=== PATIENT | male | born 1945 | race Caucasian/White ===

== ENCOUNTER 2019-06-12 04:51 | Inpatient (IN) ==
--- NOTE | 2019-05-15 09:03 | Anesthesiology Consultation ---
Date of Service May 15, 2019 Assessment & Plan (1) Encounter for pre-operative examination: Chart Review Chart Review: Acceptable Risk for Surgery and Patient seen in Pre Admission Testing Teaching & Discussion Instructed NPO after midnight before surgery, except medications with 15 cc of water. Medication instructions provided according to the PAT guidelines. History Surgery Operation Date: 06/12/19 09:20 Proposed Procedures p Right Shoulder Open Debridement, Lysis of Adhesions, Component Exchange, Possible Revision Total Shoulder Arthroplasty - Huber Foster DO Height/Weight Height: 5 ft 8 in Weight: 68.039 kg Allergies Allergy/AdvReac Type Severity Reaction Status Date / Time Vykgpmf-Wda-Pfq Reductase Allergy Unknown abnormal Verified 05/09/19 10:21 Inhibitor blood work, mimicing heart attack Medications Home Medications Medication Instructions Recorded Confirmed Last Taken lisinopril 20 mg tablet 20 mg PO QAM 02/12/19 05/09/19 Unknown Cramp Desense 70 mg PO DAILY 05/09/19 05/09/19 Unknown Holy Basil 1 tab PO DAILY 05/09/19 05/09/19 Unknown alpha lipoic acid 300 mg PO DAILY 05/09/19 05/09/19 Unknown ascorbic acid (vitamin C) [Vitamin 500 mg PO DAILY 05/09/19 05/09/19 Unknown C With Lynnette Hips] aspirin [Aspirin Low Dose] 81 mg PO DAILY 05/09/19 05/09/19 Unknown calcium carbonate-vitamin D3 1 tab PO DAILY 05/09/19 05/09/19 Unknown [Calcium 600 + D(3)] cholecalciferol (vitamin D3) 2,000 unit PO DAILY 05/09/19 05/09/19 Unknown [Vitamin D3] folic acid 0.8 mg PO DAILY 05/09/19 05/09/19 Unknown methotrexate sodium 25 mg PO WK 05/09/19 05/09/19 Unknown pqzfbmlo-zvd-HK-lycopen-lutein 1 tab PO DAILY 05/09/19 05/09/19 Unknown [Centrum Silver Men] niacin 1,500 mg PO DAILY 05/09/19 05/09/19 Unknown potassium gluconate 595 mg PO DAILY 05/09/19 05/09/19 Unknown salmon oil-omega-3 fatty acids 1 cap PO DAILY 05/09/19 05/09/19 Unknown [[place] Oil-1000] saw palmetto 500 mg PO DAILY 05/09/19 05/09/19 Unknown vit A,C and N-fhumvg-oecacxmv 1 tab PO DAILY 05/09/19 05/09/19 Unknown [Vision Formula (with lutein)] Past Medical History Medical History Chronic steroid use High blood pressure High cholesterol Osteoarthritis Psoriasis methotrexate weekly (Dermatology) Exercise / Class Metabolic Activity II 4-5 Yardwork/Stairs/Walk up hill (Denies CP or SOB with 1 FOS, +SOB when walking large energetic dog daily) Past Family History Family History Father FHx: leukemia Family history of diabetes mellitus Grandmother (Paternal) Family history of diabetes mellitus Brother FHx: prostate cancer Other No family history of adverse response to anesthesia Past Surgical History Surgical History H/O repair of left rotator cuff open H/O repair of right rotator cuff arthroscopy H/O vasectomy History of cataract surgery bilateral History of colonoscopy History of reverse total replacement of right shoulder joint History of tonsillectomy S/P left knee arthroscopy Past Anesthesia History No Hx of Anesthesia Complications and No Family Hx of Anesthesia Complications History of PONV No Hx of PONV and No Hx of Motion Sickness Social History Smoking Status: Never smoker Do You Dip or Chew Tobacco: No Hx Alcohol Use: Yes Alcohol type: beer alcohol intake frequency: 0-2 drinks per day (1-2) Hx Substance Use: No substance use type: does not use Review of Systems Pt denies any recent chest pain, shortness of breath, palpitations, cough, fever or URI. Physical Exam Vital Signs BP: 145/75 P: 83bpm SPO2: 97% RA T: 97.7 F R: 16 ENMT Mouth: + dental restorations (silver fillings); no chipped teeth and no loose teeth Thyromental Distance: > or= 3.5 Finger Breadths (3.5) Mallampati Class: I Neck normal visual inspection; neck extension not limited Respiratory normal respiratory effort Auscultation: lungs clear to auscultation bilaterally Cardiovascular Rate/Rhythm: regular rate and regular rhythm Heart Sounds: no murmur Vessels: no carotid bruit Testing Laboratory Results 05/15/19 09:14 05/15/19 09:14 PT 10.9 Seconds (9.0-12.0) 05/15/19 09:14 INR 1.1 (0.9-1.1) 05/15/19 09:14 APTT 26.3 Seconds (21.0-31.0) 05/15/19 09:14 Blood Type A Positive 05/15/19 09:14 Antibody Screen NEGATIVE 05/15/19 09:14 Electrocardiogram Date: 05/15/19 Findings: + NSR @ (70bpm) *unconfirmed Chest X-Ray Date: 05/15/19 Findings: + NAD
--- NOTE | 2019-05-15 09:10 | PAT Medication Instructions ---
Medication Instructions Date of Service May 15, 2019 Home Medications lisinopril 20 mg tablet 20 mg PO QAM Cramp Desense 70 mg PO DAILY Holy Basil 1 tab PO DAILY alpha lipoic acid 300 mg PO DAILY ascorbic acid (vitamin C) [Vitamin C With Lynnette Hips] 500 mg PO DAILY aspirin [Aspirin Low Dose] 81 mg PO DAILY calcium carbonate-vitamin D3 [Calcium 600 + D(3)] 1 tab PO DAILY cholecalciferol (vitamin D3) [Vitamin D3] 2,000 unit PO DAILY folic acid 0.8 mg PO DAILY methotrexate sodium 25 mg PO WK wyahdjet-sqg-HI-lycopen-lutein [Centrum Silver Men] 1 tab PO DAILY niacin 1,500 mg PO DAILY potassium gluconate 595 mg PO DAILY salmon oil-omega-3 fatty acids [[place] Oil-1000] 1 cap PO DAILY saw palmetto 500 mg PO DAILY vit A,C and N-gqqnjv-zlbbmrvz [Vision Formula (with lutein)] 1 tab PO DAILY ASK your surgeon for instructions aspirin [Aspirin Low Dose] 81 mg PO DAILY STOP taking 2 weeks before surgery If surgery is within 2 weeks, stop taking as soon as possible. Cramp Desense 70 mg PO DAILY Holy Basil 1 tab PO DAILY alpha lipoic acid 300 mg PO DAILY yijgdkrh-keh-RB-lycopen-lutein [Centrum Silver Men] 1 tab PO DAILY salmon oil-omega-3 fatty acids [[place] Oil-1000] 1 cap PO DAILY saw palmetto 500 mg PO DAILY vit A,C and O-grslfm-ltdrpqfv [Vision Formula (with lutein)] 1 tab PO DAILY DO NOT take the morning of surgery lisinopril 20 mg tablet 20 mg PO QAM ascorbic acid (vitamin C) 500 mg PO DAILY calcium carbonate-vitamin D3 [Calcium 600 + D(3)] 1 tab PO DAILY cholecalciferol (vitamin D3) [Vitamin D3] 2,000 unit PO DAILY folic acid 0.8 mg PO DAILY potassium gluconate 595 mg PO DAILY Other Notes If you have any questions please call us at [phone] or [phone] or [phone] or [phone]
--- NOTE | 2019-05-15 09:58 | XRay Report ---
XR chest Pre-admission PA/Lat HISTORY: 73 years-old Male pat preoperative exam. No acute chest complaints COMPARISON: None available TECHNIQUE: PA and lateral views of the chest FINDINGS: Cardiomediastinal and hilar silhouettes are within normal limits. Calcified plaque of the thoracic ao rtic arch. There is no pneumothorax, pleural effusion, focal airspace consolidation or overt pulmonar y edema. Degenerative changes of the spine and left shoulder. Reverse right shoulder total joint arth roplasty. IMPRESSION: No acute process. ACT 112: Negative or not required by law. The above report was generated using voice recognition software. It may contain grammatical, syntax o r spelling errors. Electronically signed by: Larry Russell M.D. 05/15/2019 9:56 AM
[2019-05-15 10:20] LABS: Basophils # (auto) 0.02 K/uL (0-0.2); Basophils % (auto) 0.2 %; Eosinophils # (auto) 0.04 K/uL (0-0.5); Eosinophils % (auto) 0.5 %; Hematocrit (blood only) 39.3 % (42-52); Hemoglobin 13.7 g/dL (14.0-18.0); Immature Granulocytes # (auto) 0.01 K/uL (0.00-0.02); Immature Granulocytes % (auto) 0.1 %; Lymphocytes % (auto) 20.9 %; Mean Corpuscular Hemoglobin 29.8 pg (25-34); Mean Corpuscular Hgb Conc 34.9 g/dL (32-36); Mean Corpuscular Volume 85.6 fL (80-100); Mean Platelet Volume 9.7 fL (7.4-10.4); Monocytes # (auto) 0.87 K/uL (0.11-0.59); Monocytes % (auto) 10.7 %; Neutrophils # (auto) 5.48 K/uL (1.4-6.5); Neutrophils % (auto) 67.6 %; Platelet Count 234 K/uL (130-400); RDW Coefficient of Variation 15.5 % (11.5-14.5); RDW Standard Deviation 47.9 fL (36.4-46.3); Red Blood Count 4.59 M/uL (4.7-6.1); White Blood Count 8.12 K/uL (4.8-10.8)
[2019-05-15 10:32] LABS: INR 1.1 (0.9-1.1); Partial Thromboplastin Time 26.3 Seconds (21.0-31.0); Prothrombin Time 10.9 Seconds (9.0-12.0)
[2019-05-15 10:35] LABS: BUN Creatinine Ratio 19.9 (10-20); Est GFR (African American) 104.6; Est GFR (Non-African American) 90.2; Potassium 4.5 mmol/L (3.5-5.1)
--- NOTE | 2019-05-16 17:31 | Electrocardiogram Report ---
Test Reason : Blood Pressure : / mmHG Vent. Rate : 070 BPM Atrial Rate : 070 BPM P-R Int : 170 ms QRS Dur : 086 ms QT Int : 352 ms P-R-T Axes : 067 073 066 degrees QTc Int : 380 ms Normal sinus rhythm Normal ECG No previous ECGs available Confirmed by Tony Nino ([id number]) on 05/16/2019 5:30:52 PM Referred By: Huber Foster Confirmed By:Eduardo Nino
--- NOTE | 2019-06-08 15:33 | History & Physical Report ---
Date of Service June 08, 2019 Assessment & Plan (1) Pain in shoulder region after shoulder replacement: We will proceed with a 1 stage revision of his right shoulder. Postoperatively he will be placed in a sling and kept overnight in the hospital for postoperative medical management. There will likely depend on the frozen sections during the procedure with regards to his postoperative antibiotics. Present on Admission?: Yes History of Present Illness Chief Complaint: Infected right shoulder prosthesis Primary Care Provider: Priya Mckeon RN Rufino is a 73-year-old male with complaints of right shoulder pain that has been persistent since he had a right reverse total shoulder arthroplasty in October 2016. His shoulder replacement was done in [place]. His history goes that he had a work-related injury resulting in a rotator cuff tear, requiring surgery in 2016. He had good outcome with the rotator cuff surgery and was able to return to work for 3 weeks, however he sustained another injury during a fall while walking his dog. For this injury he had a fractured wrist and apparently massive rotator cuff tear. This was treated nonoperatively for some time, however he had significant pain interfere with daily activities. He was indicated for reverse right total shoulder arthroplasty which was completed in October 2016. He reports since that arthroplasty procedure he has not had any relief from pain. He reports "it has never felt right." He complains of daily pain. The pain occurs with activities of daily living such as doing laundry or cleaning the house or doing dishes. It seems more he does the more pain he has at night. The pain does interfere with sleep, however he says that he also wakes for frequent urination. He also has had a diffuse erythema over that shoulder for some time. He had a full work-up for infection, which is included laboratory work, bone scan, and eventual punch biopsy of the erythema about the shoulder. This work-up was all done with his surgeon in [place]. He was told there is no evidence of infection. He describes no sensation of looseness to the shoulder. He relates this shoulder is painful on the prominent area anteriorly. He denies any mechanical symptoms. He does report on occasion it feels like it is out of socket and he has a shifted back into place. This is rare. He has no pain that radiates down his upper extremity. He does have pain that spreads back to the shoulder blade. He denies any numbness or tingling. He denies any new injuries. He presented to our office for second opinion. We repeated the sed rate, CRP, and CBC. All of the infection markers were mildly elevated. He continued to have good function of his shoulder but continued to have a lot of pain. We tried him on a course of doxycycline oral antibiotic. This did not give him any relief. After failing years of conservative treatment, he has elected to proceed with a 1 stage revision of the right shoulder arthroplasty. Allergies Allergy/AdvReac Type Severity Reaction Status Date / Time Dodkvri-Lrr-Ptr Reductase Allergy Unknown abnormal Verified 05/09/19 10:21 Inhibitor blood work, mimicing heart attack Home Medications Home Medications Medication Instructions Recorded Confirmed Type lisinopril 20 mg tablet 20 mg PO QAM 02/12/19 05/09/19 History Cramp Desense 70 mg PO DAILY 05/09/19 05/09/19 History Holy Basil 1 tab PO DAILY 05/09/19 05/09/19 History alpha lipoic acid 300 mg PO DAILY 05/09/19 05/09/19 History ascorbic acid (vitamin C) [Vitamin 500 mg PO DAILY 05/09/19 05/09/19 History C With Lynnette Hips] aspirin [Aspirin Low Dose] 81 mg PO DAILY 05/09/19 05/09/19 History calcium carbonate-vitamin D3 1 tab PO DAILY 05/09/19 05/09/19 History [Calcium 600 + D(3)] cholecalciferol (vitamin D3) 2,000 unit PO DAILY 05/09/19 05/09/19 History [Vitamin D3] folic acid 0.8 mg PO DAILY 05/09/19 05/09/19 History methotrexate sodium 25 mg PO WK 05/09/19 05/09/19 History kteapyas-bjs-CA-lycopen-lutein 1 tab PO DAILY 05/09/19 05/09/19 History [Centrum Silver Men] niacin 1,500 mg PO DAILY 05/09/19 05/09/19 History potassium gluconate 595 mg PO DAILY 05/09/19 05/09/19 History salmon oil-omega-3 fatty acids 1 cap PO DAILY 05/09/19 05/09/19 History [[place] Oil-1000] saw palmetto 500 mg PO DAILY 05/09/19 05/09/19 History vit A,C and H-ygabzm-aenprcqf 1 tab PO DAILY 05/09/19 05/09/19 History [Vision Formula (with lutein)] Past Med/Surg History Medical History Chronic steroid use High blood pressure High cholesterol Osteoarthritis Psoriasis methotrexate weekly (Dermatology) Surgical History H/O repair of left rotator cuff open H/O repair of right rotator cuff arthroscopy H/O vasectomy History of cataract surgery bilateral History of colonoscopy History of reverse total replacement of right shoulder joint History of tonsillectomy S/P left knee arthroscopy Family History Father FHx: leukemia Family history of diabetes mellitus Grandmother (Paternal) Family history of diabetes mellitus Brother FHx: prostate cancer Other No family history of adverse response to anesthesia Social History Preferred Language: Armenian Communication Ability: Effective 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 Beliefs That Will Affect Care: None Current Living Situation: Spouse Other Information That Helps Us Care for You: No Feels Safe at Home: Yes Safety Concerns: Feels Safe At This Time Smoking Status: Never smoker Do You Dip or Chew Tobacco: No ; Second Hand Exposure: No ; Tobacco Cessation Education Requested by Patient: No Hx Alcohol Use: Yes Alcohol type: beer Hx Substance Use: No Review of Systems All systems reviewed & are unremarkable except as noted in HPI & below Physical Exam Constitutional: WD/WN, vitals as above Eyes: PERRL, conjunctivae normal, anicteric sclerae ENMT: external ear and nose normal, oropharynx normal Neck: trachea midline, no thyromegaly Respiratory: normal respiratory effort Cardiovascular: RRR, no murmur, no edema Gastrointestinal (Abdomen): normal bowel sounds, soft, nontender, no hepatosplenomegaly Musculoskeletal: On physical examination of the right shoulder, he has extensive red rash around the anterior aspect of his right shoulder. He is neurovascularly intact. He is decent motion about 130 degrees of forward elevation, 30 degrees of abduction and 30 Gy of external rotation. He has good range of motion. He does have pain throughout range of motion. Most of pain is located anteriorly. Psychiatric: A+Ox3, euthymic affect Results & Data Diagnostic Findings X-rays of the right shoulder show a press-fit Depuy delta extend right reverse shoulder arthroplasty. The prosthesis appears to be in good alignment. The x- rays are negative.
[2019-06-12] MEDS ORDERED: dexAMETHasone 4 MG TAB PO SCH (06:00)
[2019-06-12] MEDS ORDERED: LR 15ML/HR IV SCH (06:00)
[2019-06-12] MEDS ORDERED: ACETAMINOPHEN 500 MG TAB PO SCH (06:00)
[2019-06-12] MEDS ORDERED: GABAPENTIN 300 MG CAP PO SCH (06:00)
[2019-06-12] MEDS ORDERED: LR 60ML/HR IV SCH (06:00)
[2019-06-12] MEDS ORDERED: TRANEXAMIC ACID 1,000 MG **IV Pre-op IV SCH (06:00)
[2019-06-12] MEDS ORDERED: TRANEXAMIC ACID 1,000 MG **IV Intra-op IV SCH (06:00)
[2019-06-12] MEDS ORDERED: ROPIVACAINE 0.5% HCL/PF 150 MG, BUPIVACAINE 0.5% MPF 30 ML, EPINEPHrine 30MG/30ML (OR U... INFIL SCH (06:00)
[2019-06-12] MEDS ORDERED: CEFAZOLIN 2000MG 2,000 MG/15 ML SYR IV SCH (06:00)
[2019-06-12] MEDS ORDERED: FAMOTIDINE 20 MG TAB PO SCH (06:00)
--- NOTE | 2019-06-12 06:22 | History & Physical Bridge Note ---
Date of Service June 12, 2019 History & Physical Bridge Note I have examined the patient, reviewed the History & Physical and in the interval since the performance of the History & Physical I have noted the following changes of clinical significance: no changes noted
[2019-06-12] MEDS ORDERED: BUPIVACAINE 0.5 % 5 MG/1 ML PF 10ML VIAL ONE (06:30)
[2019-06-12] MEDS ORDERED: fentaNYL citrate 100 MCG/2 ML VIAL ONE (06:42)
[2019-06-12] MEDS ORDERED: ROCURONIUM BROMIDE 10 MG/ML 5 ML VIAL ONE (06:42)
[2019-06-12] MEDS ORDERED: ONDANSETRON INJ 2 MG/ML 2 ML VIAL ONE (06:42)
[2019-06-12] MEDS ORDERED: LIDOCAINE HCL 2% 2 ML VIAL/AMP(20MG/ML) INFIL ONE (06:42)
[2019-06-12] MEDS ORDERED: MIDAZOLAM HCL 1 MG/ML 2ML VIAL ONE (06:42)
[2019-06-12] MEDS ORDERED: PROPOFOL IV EMULSION 10 MG/ML 20 ML VIAL IV ONE (06:42)
[2019-06-12] MEDS ORDERED: BACITRACIN INJ 50,000 UNIT VIAL ONE ×2 (07:00→07:26)
[2019-06-12] MEDS ORDERED: DAKIN'S SOLN 0.5% FULL STRENGTH 473ML BTL EXT STA (07:03)
[2019-06-12] MEDS ORDERED: DEXAMETHASONE SOD INJ 4 MG/ML VIAL ONE (07:29)
[2019-06-12] MEDS ORDERED: ONDANSETRON INJ 2 MG/ML 2 ML VIAL IV PRN ×2 (09:11→11:24)
[2019-06-12] MEDS ORDERED: ePHEDrine sulfate 50 MG/ML AMP IV PRN (09:11)
[2019-06-12] MEDS ORDERED: ATROPINE SULFATE 0.1 MG/ML 10ML SYR IV PRN (09:11)
[2019-06-12] MEDS ORDERED: fentaNYL citrate 100 MCG/2 ML VIAL IV PRN (09:11)
--- NOTE | 2019-06-12 10:21 | Operative Report ---
PG Post Operative Report Pre & Post Diagnosis Operation Date: 06/12/19 07:00 Pre-Op Diagnosis: infected right shoulder prosthesis Post-Op Diagnosis: infected right shoulder prosthesis I identified the patient and participated in the time-out.: Yes Procedure Operation Date: 06/12/19 07:00 Actual Procedures p Right Shoulder removal of all components with complete irrigation and debridement of the right shoulder joint. A reimplantation of a reverse shoulder prosthesis was then done as a separate procedure (modifier 59 ) - Huber Foster DO Surgeon Huber Foster DO Sales Planning Coordinator Dr. Juan Lima MD, Huber Galan PAC Estimated Blood Loss 250 Findings Consistent with Post-Op Diagnosis Specimens Swab cultures and tissue cultures Complications none Disposition Disposition: Recovery Room Indications Rufino is a pleasant 74-year-old male who underwent a right reverse shoulder arthroplasty about 3 years ago in [place]. He has been having right shoulder pain since. He came to my clinic for second opinion. Work-up and physical examination are suggestive of a possible infection of the right shoulder prosthesis. After failing conservative treatment, he elected to proceed with a 1 stage revision of the right shoulder. Description of Procedure On June 12, 2019 Rufino arrived at [facility] for the above procedure. He was seen in the preoperative holding area and the operative extremity was identified and signed. He was given a right interscalene nerve block. He was taken back to the operating room and laid on the table in the supine position. He was put under general anesthesia. He was then put into the beachchair position. The right shoulder was prepped and draped in sterile fashion. A timeout was done. The patient and the operative extremity was properly identified. The previous deltopectoral incision was opened up. Dissection was taken down through the interval. There was a lot of anterior scar tissue. Once I got down to the shoulder joint there was a very large cystic mass coming anteriorly out of the joint. This was opened up and a large amount of purulent discharge came out of the joint. Swab cultures were taken and tissue cultures were taken. The subscapularis was then tenotomized off the lesser tuberosity. The shoulder was then dislocated and the proximal humerus was exposed. A flexible osteotome was used to break the robertson between the epiphyseal cup and the bone. The epiphyseal cup was then removed of the To[place] delta extend implant that was currently in there. A flexible osteotome was then used to free the robertson around the proximal portion of the stent and the stem was explanted. Attention was then turned to the glenoid. The glenosphere was easily removed. Surrounding screws of the baseplate were then removed. A curved osteotome was used to loosen the robertson between the baseplate and the bone. The glenoid baseplate was then removed. There was not much bone loss with removal of the components. Throughout this process there was infection through all the screw holes and on the back sides of the plates. Significant time was then spent doing a debridement. Time was spent debriding the posterior superior inferior and anterior portions of the shoulder joint. The wound was then irrigated with a Parvizi protocol. I first did a 3-minute lavage of a Dakin solution. The wound was then irrigated with 3 L normal saline solution. I then did a 3-minute lavage of a dilute Betadine solution. The wound was then irrigated with 3 L of normal saline solution. The wound was then irrigated once again with 3 L of normal saline solution with bacitracin with use of a pulse lavage. Once I was happy that the entire joint was clean, decision was made for reimplantation of a prosthesis. The wound was covered and all drapes were removed. All personnel changed her gown and gloves and the tables were completely taken down. A complete new sterile set up was then done for a reimplantation of a reverse shoulder prosthesis. As a separate procedure all new drapes and instruments were open. The shoulder was then prepped and draped in sterile fashion. Another timeout was done and the patient and the operative extremity was identified. The glenoid was easily exposed. I decided to implant a Biomet comprehensive reverse shoulder arthroplasty. A central guidepin was placed. A 25 mm mini baseplate reamer was then used. The 25 mm mini baseplate was then impacted into place. A single central screw was placed followed by superior and inferior locking screws. A 36 mm eccentric glenosphere was then impacted into place. The proximal humerus was then exposed. Sequential reaming up to a size 10 reamer was done. A trial size 10 fracture stem was then impacted into place at the appropriate version. Maria Isabel ral humeral trays were trialed and a +5 baseplate with a +3 bearing seem to be the best fit. The trials were then removed. The final size 10 press-fit fracture stem was then impacted into place. A +3 polyethylene bearing was then snapped onto a +5 humeral tray. The humeral tray was then impacted onto the humeral stem. The shoulder was reduced. The shoulder was brought through a full range of motion and felt to be stable. There was a crack of the greater tuberosity near the insertion of the infraspinatus. This was repaired to this prosthesis with #5 FiberWire suture. The wound was then irrigated with normal saline solution. Another 3-minute Betadine lavage was then done. The wound was once again irrigated. The interval was closed with 2-0 Vicryl suture. Skin was closed with 3-0 Vicryl and ej. He was then placed in a soft dressing and a regular arm sling. He was then extubated and transferred to a litter. He was taken to the postanesthesia care unit in stable condition. He tolerated the procedure well. Dr. Juan Lima MD, was present for the entire procedure. His expertise was critical for technical portions of the procedure as well as decision making. Huber Galan PA-C, was present for the entire procedure. He was critical for patient positioning, prepping, draping, retraction exposure, wound closure and application of sterile dressing. I attest to the content of the Intraoperative Record and any orders documented therein. Any exceptions are noted below.
--- NOTE | 2019-06-12 10:55 | Anesthesiology Progress Note ---
Date of Service June 12, 2019 Anesthesia Post Procedure Vital Signs Vital Signs: Temp Pulse Pulse Resp BP Pulse Ox 06/12/19 10:45 81 20 122/63 100 06/12/19 10:35 78 16 123/54 L 100 06/12/19 10:25 35.9 C L 92 H 16 122/57 L 99 06/12/19 05:31 36.6 C 80 20 161/75 H 99 Transfer of Care Handoff Completed per policy Notes Mental Status: alert / awake / arousable and participated in evaluation Patient Amnestic to Procedure: Yes Nausea / Vomiting: adequately controlled Pain: adequately controlled Airway Patency, RR, SpO2: stable & adequate BP & HR: stable & adequate Hydration State: stable & adequate Anesthetic Complications: no major complications apparent and Pt Satisfied with anesthetic care Notes: Block is functioning well - pt with possibly some minor right eye ptosis from block - should resolve without any concerns.
--- NOTE | 2019-06-12 11:09 | XRay Report ---
XR shoulder RT min 2V routine CLINICAL HISTORY: Post shoulder surgery COMPARISON STUDY: None. FINDINGS: Patient is status post a reverse right total shoulder arthroplasty. The hardware appears in tact. Skin ej are in place. No fracture or dislocation. IMPRESSION: Status post reverse right total shoulder arthroplasty. No evidence for hardware complica tion. ACT 112: Negative or not required by law. Electronically signed by: Kennedy Soriano M.D. 06/12/2019 11:07 AM
[2019-06-12] MEDS ORDERED: bisacodyL 10 MG SUPP PR PRN (11:24)
[2019-06-12] MEDS ORDERED: OXYCODONE HCL IR 5 MG TAB (IMMEDIATE RELEASE) PO PRN (11:24)
[2019-06-12] MEDS ORDERED: VANCOMYCIN CONSULT ACTIVE PRN ×2 (11:24→13:11)
[2019-06-12] MEDS ORDERED: SODIUM CHLORIDE 0.9% 1000ML 1,000 ML IV SCH (11:24)
[2019-06-12] MEDS ORDERED: NALOXONE HCL 0.4 MG/1 ML VIAL/CARP IV PRN (11:24)
[2019-06-12] MEDS ORDERED: METOCLOPRAMIDE HCL INJ 5 MG/ML 2 ML VIAL IV PRN (11:24)
[2019-06-12] MEDS ORDERED: MAGNESIUM HYDROXIDE SUSP 30 ML UDC PO PRN (11:24)
--- NOTE | 2019-06-12 12:24 | Infectious Disease Consult ---
Date of Consultation June 12, 2019 Assessment & Plan (1) Right shoulder pain: follow culture results, contiinue abx for now. will check procalcitonin. esr/crp not as helpful in the immediate post op period, suspect will be elevated due to surgery. History of Present Illness Attending Physician: Huber Foster DO pt admitted for elective surgery due to ongoing right shoulder pain. was seen at another hospital previously, had reported negative infectious workup, was on doxy for some time but states no abx recently. family at bedside, he is seen post op. family states they were told thick white drainage was aspirated from joint in OR. He is feeling well on my exam, no pain currently, ice pack over shoulder. no f/c currently or at home. states he had redness over shoulder but no open wounds or trauma. He is currently afebrile. on vanco and tolerating well. OR cultures pending, gram stain negative, wbc 05/15 - 8, creat 0.7, no labs this admission. no previous imaging/cultures at [facility] to review, with exception of 02/14 culture which is negative. he denies abd pain, no n/v/d. no cp, sob, cough. no f/c. no recent abx. Allergies Allergy/AdvReac Type Severity Reaction Status Date / Time Siozjjw-Eqg-Ezt Reductase Allergy Unknown abnormal Verified 06/12/19 05:34 Inhibitor blood work, mimicing heart attack Home Medications Home Medications Medication Instructions Recorded Confirmed Type lisinopril 20 mg tablet 20 mg PO QAM 02/12/19 06/12/19 History Cramp Desense 70 mg PO DAILY 05/09/19 06/12/19 History Holy Basil 1 tab PO DAILY 05/09/19 06/12/19 History alpha lipoic acid 300 mg PO DAILY 05/09/19 06/12/19 History ascorbic acid (vitamin C) [Vitamin 500 mg PO DAILY 05/09/19 06/12/19 History C With Lynnette Hips] aspirin [Aspirin Low Dose] 81 mg PO DAILY 05/09/19 06/12/19 History calcium carbonate-vitamin D3 1 tab PO DAILY 05/09/19 06/12/19 History [Calcium 600 + D(3)] cholecalciferol (vitamin D3) 2,000 unit PO DAILY 05/09/19 06/12/19 History [Vitamin D3] folic acid 0.8 mg PO DAILY 05/09/19 06/12/19 History methotrexate sodium 25 mg PO WK 05/09/19 06/12/19 History cqlhtjzs-trq-NF-lycopen-lutein 1 tab PO DAILY 05/09/19 06/12/19 History [Centrum Silver Men] niacin 1,500 mg PO DAILY 05/09/19 06/12/19 History potassium gluconate 595 mg PO DAILY 05/09/19 06/12/19 History salmon oil-omega-3 fatty acids 1 cap PO DAILY 05/09/19 06/12/19 History [[place] Oil-1000] saw palmetto 500 mg PO DAILY 05/09/19 06/12/19 History vit A,C and E-rpwhsf-ivjrnjjf 1 tab PO DAILY 05/09/19 06/12/19 History [Vision Formula (with lutein)] Patient History Medical History Chronic steroid use High blood pressure High cholesterol Osteoarthritis Psoriasis methotrexate weekly (Dermatology) Surgical History H/O repair of left rotator cuff open H/O repair of right rotator cuff arthroscopy H/O vasectomy History of cataract surgery bilateral History of colonoscopy History of reverse total replacement of right shoulder joint History of tonsillectomy S/P left knee arthroscopy Family History Father FHx: leukemia Family history of diabetes mellitus Grandmother (Paternal) Family history of diabetes mellitus Brother FHx: prostate cancer Other No family history of adverse response to anesthesia Social History Preferred Language: Wallisian Communication Ability: Effective 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 Beliefs That Will Affect Care: None Current Living Situation: Spouse Other Information That Helps Us Care for You: No Feels Safe at Home: Yes Safety Concerns: Feels Safe At This Time Smoking Status: Never smoker Do You Dip or Chew Tobacco: No ; Second Hand Exposure: No ; Tobacco Cessation Education Requested by Patient: No Hx Alcohol Use: Yes Alcohol type: beer Hx Substance Use: No Review of Systems Review of Systems: All systems reviewed & are unremarkable except as noted in HPI & below Physical Exam Constitutional: WD/WN, vitals as above Eyes: PERRL, conjunctivae normal, anicteric sclerae ENMT: external ear and nose normal, oropharynx normal Neck: normal visual inspection Respiratory: normal respiratory effort, lungs clear to auscultation Cardiovascular: RRR, no murmur, no edema Gastrointestinal (Abdomen): normal bowel sounds, soft, nontender, no hepatosplenomegaly Musculoskeletal: no cyanosis or clubbing, extremities motor strength 5/5 Skin: no rashes, warm and dry Psychiatric: A+Ox3, euthymic affect Results & Data ([facility]) Vital Signs (Past 12 Hours) Vital Signs Temp Pulse Pulse Resp BP Pulse Ox 06/12/19 11:45 36.7 C 87 16 134/70 100 06/12/19 11:15 36.4 C L 85 18 123/66 100 06/12/19 10:55 36.2 C L 86 20 117/64 99 06/12/19 10:45 81 20 122/63 100 06/12/19 10:35 78 16 123/54 L 100 06/12/19 10:25 35.9 C L 92 H 16 122/57 L 99 06/12/19 05:31 36.6 C 80 20 161/75 H 99 PG Care Time/CCT Total # of Minutes Spent Total Time Spent with Patient: Total time spent is greater than 50% in coordination of care (as documented) at patient's floor/unit and/or counseling patient: Coding Level of Care Code 31791 Inpt Consult Level 4 Diagnoses Right shoulder pain M25.511
[2019-06-12] MEDS ORDERED: metHOTREXate sodium 2.5 MG TAB PO SCH (12:30)
[2019-06-12] MEDS: ACETAMINOPHEN 500 MG TAB PO SCH ×2 (13:22→21:01)
[2019-06-12] MEDS: KETOROLAC TROMETHAMINE 15 MG/ML VIAL IV SCH ×2 (13:23→20:40)
[2019-06-12] MEDS ORDERED: VANCOMYCIN HCL 1,750 MG in SODIUM CHLORIDE 0.9% 500 ML IV ONE (13:30)
[2019-06-12] MEDS ORDERED: VANCOMYCIN HCL 1,000 MG in SODIUM CHLORIDE 0.9% 250 ML IV SCH (15:00)
[2019-06-12 17:04] LABS: Creatinine Clr Calc Pharmacy 63.3 ml/min; Est GFR (African American) 92.1; Est GFR (Non-African American) 79.5
--- NOTE | 2019-06-12 19:26 | Pharmacy Report ---
Pharmacy Abx Initial Consult - Date of Service June 12, 2019 - Pharmacy Dosing Scope Date of Consult: 06/12/19 Consultation requested by: Huber MONK Pharmacy is consulted to initiate Vancomycin IV dosing therapy, order appropriate labs and adjust drug dose/frequency. - Subjective The patient is a 74 year old M admitted on 06/12/19 10:27 for surgical intervention on his shoulder. About 3 years he underwent right reverse shoulder arthroplasty. He presents to Dr. Foster with suspicion of infection. After procedure/surgery pharmacy was consulted to dose and follow Vancomycin. - Objective Height: 5 ft 8 in Weight: 66.27 kg Vital Signs (Past 12hrs): Vital Signs Temp Pulse Pulse Resp BP Pulse Ox 06/12/19 15:18 36.4 C L 101 H 18 152/76 H 97 06/12/19 14:15 36.4 C L 87 18 129/66 97 06/12/19 13:15 36.4 C L 102 H 20 144/78 H 99 06/12/19 12:33 36.6 C 87 17 132/71 100 06/12/19 11:45 36.7 C 87 16 134/70 100 06/12/19 11:15 36.4 C L 85 18 123/66 100 06/12/19 10:55 36.2 C L 86 20 117/64 99 06/12/19 10:45 81 20 122/63 100 06/12/19 10:35 78 16 123/54 L 100 06/12/19 10:25 35.9 C L 92 H 16 122/57 L 99 Lab Results (24hrs): Laboratory Tests (24 Hours) 06/12/19 15:59 Creatinine 0.93 Est Cr Clr Drug Dosing 63.3 Micro Results: 06/12/19 07:41 Gram Stain - Final Shoulder,Right Aerobic and Anaerobic Culture - Pending 06/12/19 07:45 Gram Stain - Final Shoulder Aerobic and Anaerobic Culture - Pending 06/12/19 Unknown Gram Stain - Final Shoulder,Right Aerobic and Anaerobic Culture - Pending - Assessment & Plan Assessment 74 year old M with complex shoulder infection Plan Vancomycin IV * Estimated PK Parameters: Vd 0.74 L/kg, Venkatesh 0.07 hr-1, t1/2 9.4 hr * Loading dose: 1750 mg (~26 mg/kg) * Maintenance dose: 1250 mg IV (~19 mg/kg) every 12 hours * Goal trough level: 15 to 20 mcg/mL * Trough level ordered prior to 1400 dose on 06/14/19 Pharmacy will continue to follow and will adjust dose/frequency as necessary. Thank you.
[2019-06-12] MEDS: SENNA 8.6 MG TAB PO SCH (20:40)
[2019-06-12] MEDS: DOCUSATE SODIUM 100 MG CAP PO SCH (20:40)
[2019-06-13] MEDS: VANCOMYCIN HCL 1,250 MG in SODIUM CHLORIDE 0.9% 250 ML IV SCH ×2 (02:02→14:25)
[2019-06-13] MEDS: KETOROLAC TROMETHAMINE 15 MG/ML VIAL IV SCH ×4 (02:02→20:17)
[2019-06-13] MEDS: ACETAMINOPHEN 500 MG TAB PO SCH ×3 (06:17→21:47)
--- NOTE | 2019-06-13 06:43 | Orthopedic Progress Note ---
Date of Service June 13, 2019 Assessment & Plan (1) Infection of prosthetic total shoulder joint: Overall he is doing fairly well. During the procedure there was a very large amount of purulent and chronic infected appearing tissue. 2 swab cultures and tissue cultures were obtained. The old prosthesis was removed and the joint was washed out thoroughly. A new shoulder prosthesis was then sterilely reimplanted. He is currently on vancomycin. Infectious disease has been consulted for antibiotic recommendations. We are awaiting culture results. He will likely require a PICC line and he understands that. He can be seen by physical therapy for hand, wrist, elbow and pendulum exercises. Present on Admission?: Yes Subjective Rufino was seen and examined at bedside this morning. Overall he is doing very well. He is not having too much pain in the right shoulder. He was able to get some sleep last night. He has no complaints. Physical Exam Musculoskeletal: On physical examination of the right shoulder, the dressing is clean and dry. He is wearing his sling as instructed. His radial, median, and ulnar nerves are checked and intact at his wrist. His axillary nerve was not checked yet. The red rash on the front of the shoulder is subsiding. Results & Data ([facility]) Vital Signs (Past 12 Hours) Vital Signs Temp Pulse Resp BP Pulse Ox 06/13/19 02:58 36.6 C 93 H 16 135/71 96 06/12/19 23:38 36.9 C 92 H 16 146/71 H 96 06/12/19 19:36 36.5 C 86 16 123/66 95 PG Care Time/CCT Total # of Minutes Spent Total Time Spent with Patient: Total time spent is greater than 50% in coordination of care (as documented) at patient's floor/unit and/or counseling patient: Coding Level of Care Code None Diagnoses Infection of prosthetic total shoulder joint T84.59XA; Z96.619
[2019-06-13 07:18] LABS: Hematocrit (blood only) 33.7 % (42-52); Hemoglobin 11.6 g/dL (14.0-18.0); Immature Granulocytes # (auto) 0.06 K/uL (0.00-0.02); Immature Granulocytes % (auto) 0.3 %; Lymphocytes % (auto) 7.1 %; Mean Corpuscular Hemoglobin 28.6 pg (25-34); Mean Corpuscular Hgb Conc 34.4 g/dL (32-36); Mean Platelet Volume 8.8 fL (7.4-10.4); Monocytes # (auto) 1.13 K/uL (0.11-0.59); Monocytes % (auto) 5.7 %; Neutrophils % (auto) 86.9 %; Platelet Count 284 K/uL (130-400); RDW Coefficient of Variation 15.1 % (11.5-14.5); RDW Standard Deviation 45.8 fL (36.4-46.3); Red Blood Count 4.06 M/uL (4.7-6.1); White Blood Count 19.79 K/uL (4.8-10.8)
[2019-06-13 07:46] LABS: BUN Creatinine Ratio 22.3 (10-20); Calcium 8.8 mg/dl (8.5-10.1); Creatinine Clr Calc Pharmacy 57.8 ml/min; Est GFR (African American) 82.4; Est GFR (Non-African American) 71.1; Potassium 4.1 mmol/L (3.5-5.1)
[2019-06-13] MEDS ORDERED: dexAMETHasone 4 MG TAB PO SCH (08:00)
--- NOTE | 2019-06-13 08:07 | Anesthesiology Progress Note ---
Date of Service June 13, 2019 Anesthesia Post Procedure Vital Signs Vital Signs: Temp Pulse Pulse Resp BP Pulse Ox 06/13/19 08:00 36.8 C 107 H 19 164/80 H 98 06/13/19 02:58 36.6 C 93 H 16 135/71 96 06/12/19 23:38 36.9 C 92 H 16 146/71 H 96 06/12/19 19:36 36.5 C 86 16 123/66 95 06/12/19 15:18 36.4 C L 101 H 18 152/76 H 97 06/12/19 14:15 36.4 C L 87 18 129/66 97 06/12/19 13:15 36.4 C L 102 H 20 144/78 H 99 06/12/19 12:33 36.6 C 87 17 132/71 100 06/12/19 11:45 36.7 C 87 16 134/70 100 06/12/19 11:15 36.4 C L 85 18 123/66 100 06/12/19 10:55 36.2 C L 86 20 117/64 99 06/12/19 10:45 81 20 122/63 100 06/12/19 10:35 78 16 123/54 L 100 06/12/19 10:25 35.9 C L 92 H 16 122/57 L 99 Notes Mental Status: alert / awake / arousable and participated in evaluation Patient Amnestic to Procedure: Yes Nausea / Vomiting: adequately controlled Pain: adequately controlled Airway Patency, RR, SpO2: stable & adequate BP & HR: stable & adequate Hydration State: stable & adequate Anesthetic Complications: no major complications apparent and Pt Satisfied with anesthetic care
[2019-06-13] MEDS: DOCUSATE SODIUM 100 MG CAP PO SCH ×2 (08:54→20:18)
[2019-06-13] MEDS: FOLIC ACID 400 MCG TAB PO SCH (08:55)
[2019-06-13] MEDS: MULTIVITAMIN TAB PO SCH (08:55)
[2019-06-13] MEDS: ASPIRIN 81 MG ECTAB PO SCH (08:55)
[2019-06-13] MEDS: lisinopriL 20 MG TAB PO SCH (08:58)
[2019-06-13] MEDS ORDERED: NON-FORMULARY MEDICATION (Potassium Gluconate 595 MG) PO SCH (09:00)
--- NOTE | 2019-06-13 12:01 | Infectious Disease Progress Nt ---
Date of Service June 13, 2019 Assessment & Plan Admission and Anticipated Discharge Date Admission Date: June 12, 2019 Subjective pt afebrile, cultures pending, procalcitonin negative. remains on vanco e mperically. Results & Data ([facility]) Vital Signs (Past 12 Hours) Vital Signs Temp Pulse Pulse Resp BP Pulse Ox 06/13/19 11:54 36.7 C 92 H 18 140/72 97 06/13/19 09:03 96 H 06/13/19 08:57 104 H 161/77 H 06/13/19 08:00 36.8 C 107 H 19 164/80 H 98 06/13/19 02:58 36.6 C 93 H 16 135/71 96 Laboratory Results Microbiology 06/12/19 Unknown Shoulder,Right Gram Stain - Final 06/12/19 Unknown Shoulder,Right Aerobic and Anaerobic Culture - Preliminary No growth to date. 06/12/19 07:45 Shoulder Gram Stain - Final 06/12/19 07:45 Shoulder Aerobic and Anaerobic Culture - Preliminary No growth to date. 06/12/19 07:41 Shoulder,Right Gram Stain - Final 06/12/19 07:41 Shoulder,Right Aerobic and Anaerobic Culture - Preliminary No growth to date. PG Care Time/CCT Total # of Minutes Spent Total Time Spent with Patient: Total time spent is greater than 50% in coordination of care (as documented) at patient's floor/unit and/or counseling patient: Coding Level of Care Code 48193 Subseq Hosp Care Lvl 1
[2019-06-13] MEDS: SENNA 8.6 MG TAB PO SCH (20:18)
[2019-06-14] MEDS ORDERED: VANCOMYCIN TROUGH ONE ×2 (01:30→13:30)
[2019-06-14] MEDS: VANCOMYCIN HCL 1,250 MG in SODIUM CHLORIDE 0.9% 250 ML IV SCH (01:59)
[2019-06-14] MEDS: KETOROLAC TROMETHAMINE 15 MG/ML VIAL IV SCH ×2 (01:59→08:27)
[2019-06-14 03:43] LABS: Creatinine Clr Calc Pharmacy 54.5 ml/min; Est GFR (African American) 76.9; Est GFR (Non-African American) 66.3
[2019-06-14] MEDS: ACETAMINOPHEN 500 MG TAB PO SCH ×3 (05:42→21:25)
[2019-06-14] MEDS: FOLIC ACID 400 MCG TAB PO SCH (08:28)
[2019-06-14] MEDS: MULTIVITAMIN TAB PO SCH (08:28)
[2019-06-14] MEDS: DOCUSATE SODIUM 100 MG CAP PO SCH ×2 (08:28→21:25)
[2019-06-14] MEDS: ASPIRIN 81 MG ECTAB PO SCH (08:28)
[2019-06-14] MEDS: lisinopriL 20 MG TAB PO SCH (08:54)
--- NOTE | 2019-06-14 09:46 | Pharmacy Report ---
Pharmacy Abx Dose Short Note - Date of Service June 14, 2019 - Assessment & Plan Assessment 74 year old M ordered empiric vancomycin IV for treatment of infected prosthetic total shoulder joint * s/p open debridement, component exchange, and revision of total shoulder arthroplasty on 06/12 Plan Vancomycin * Trough level of 19.9 mcg/mL is subtherapeutic * Decrease to 1000 mg (15 mg/kg) IV every 12 hours * Goal trough level: 15 mcg/mL * Repeat trough level on @ 0130 Pharmacy will continue to follow and will adjust dose/frequency as necessary. Thank you.
[2019-06-14] MEDS: VANCOMYCIN HCL 1,000 MG in SODIUM CHLORIDE 0.9% 250 ML IV SCH (14:45)
--- NOTE | 2019-06-14 15:27 | Orthopedic Progress Note ---
Date of Service June 14, 2019 Assessment & Plan (1) Infection of prosthetic total shoulder joint: Overall he continues to improve. The cultures have not grown anything at this point. I would not be surprised if this is a C acnes infection. I did call down the lab to make sure that they hold the cultures for 14 days. He is ready to go home but we are awaiting final recommendations from infectious disease. Hopefully the cultures will be back and he can go home tomorrow. Present on Admission?: Yes Subjective Rufino was seen and examined at bedside today. Overall is doing fairly well. Has been participating well with physical therapy. He does not have much pain in the shoulder. He is happy with his progress to this point and has no complaints. Physical Exam Musculoskeletal: On physical examination of the right shoulder, the dressing is clean and dry. He is wearing a sling as instructed. He is neurologically intact. The redness is improving. Results & Data ([facility]) Vital Signs (Past 12 Hours) Vital Signs Temp Pulse Resp BP Pulse Ox 06/14/19 15:07 36.8 C 108 H 16 168/85 H 96 06/14/19 07:46 36.6 C 90 16 170/85 H 96 PG Care Time/CCT Total # of Minutes Spent Total Time Spent with Patient: Total time spent is greater than 50% in coordination of care (as documented) at patient's floor/unit and/or counseling patient: Coding Level of Care Code None Diagnoses Infection of prosthetic total shoulder joint T84.59XA; Z96.619
[2019-06-14] MEDS: SENNA 8.6 MG TAB PO SCH (21:25)
[2019-06-15] MEDS: VANCOMYCIN HCL 1,000 MG in SODIUM CHLORIDE 0.9% 250 ML IV SCH (02:09)
[2019-06-15 05:31] LABS: Creatinine Clr Calc Pharmacy 26.1 ml/min; Est GFR (African American) 31.5; Est GFR (Non-African American) 27.2
[2019-06-15] MEDS: ACETAMINOPHEN 500 MG TAB PO SCH ×2 (05:42→14:40)
[2019-06-15] MEDS: MULTIVITAMIN TAB PO SCH (08:12)
[2019-06-15] MEDS: DOCUSATE SODIUM 100 MG CAP PO SCH (08:12)
[2019-06-15] MEDS: lisinopriL 20 MG TAB PO SCH (08:12)
[2019-06-15] MEDS: ASPIRIN 81 MG ECTAB PO SCH (08:13)
[2019-06-15] MEDS: FOLIC ACID 400 MCG TAB PO SCH (08:13)
--- NOTE | 2019-06-15 10:00 | Pharmacy Report ---
Pharmacy Abx Dose Short Note - Date of Service June 15, 2019 - Assessment & Plan Assessment 74 year old M ordered empiric vancomycin IV for treatment of infected prosthetic total shoulder joint * vanco started 06/12 at 1330 * s/p open debridement, component exchange, and revision of total shoulder arthroplasty on 06/12 * cultures reported no growth to date * Significant rise in Scr (1.08 -> 2.26 mg/dL) with unknown cause. Plan Vancomycin placed on hold due to KYLE If continuation of treatment with vanco is necessary, will trend random levels and resume vanco when level is < 15 mcg/mL. Pharmacy will continue to follow and will adjust dose/frequency as necessary. Thank you.
--- NOTE | 2019-06-15 10:38 | Infectious Disease Progress Nt ---
Date of Service June 15, 2019 Assessment & Plan (1) Shoulder pain: no micro/lab suggestion of infection, agree with holding additional vanco due to elevated creatine. cultues negative. would suggest d/c with either doxy 100mg po bid x 21 days or Dalvance at [facility] x 2 dose (2 weeks apart). would not suggest ongoing vanco upon d/c due to david. Admission and Anticipated Discharge Date Admission Date: June 12, 2019 Subjective pt afebrile, abx on hold due to creat increase from 1 to 2.2 today, last vanco trough 19. procalcitonin negative. wbc normal, no am labs. per ortho note for d/c Results & Data ([facility]) Vital Signs (Past 12 Hours) Vital Signs Temp Pulse Pulse Resp BP Pulse Ox 06/15/19 10:31 166/82 H 06/15/19 07:49 36.6 C 104 H 18 172/88 H 98 06/14/19 23:08 36.5 C 85 16 168/78 H 95 Laboratory Results Microbiology 06/12/19 Unknown Shoulder,Right Gram Stain - Final 06/12/19 Unknown Shoulder,Right Aerobic and Anaerobic Culture - Preliminary No growth to date. 06/12/19 07:45 Shoulder Gram Stain - Final 06/12/19 07:45 Shoulder Aerobic and Anaerobic Culture - Preliminary No growth to date. 06/12/19 07:41 Shoulder,Right Gram Stain - Final 06/12/19 07:41 Shoulder,Right Aerobic and Anaerobic Culture - Preliminary No growth to date. PG Care Time/CCT Total # of Minutes Spent Total Time Spent with Patient: Total time spent is greater than 50% in coordination of care (as documented) at patient's floor/unit and/or counseling patient: Coding Level of Care Code 24055 Subseq Hosp Care Lvl 1 Diagnoses Shoulder pain M25.519
--- NOTE | 2019-06-15 16:39 | Orthopedic Progress Note ---
Date of Service June 15, 2019 Assessment & Plan (1) Infection of prosthetic total shoulder joint: The cultures have not grown out anything and his lab values do not show any current signs of infection. I do not know what else would have caused all that discharge from the shoulder. It could be a C acnes infection which can take up to 14 days to culture. The lab will be holding onto those cultures for 14 days. For now he can be discharged home on doxycycline twice a day for 21 days. He will be in the sling for total of 3 weeks. He can follow-up with orthopedics in 2 weeks. Present on Admission?: Yes Subjective Rufino was seen and examined at bedside today. Overall he is doing very well. He says he has no pain in his right shoulder. He has been working well with physical therapy. He was seen by infectious disease today. He has no new complaints. Physical Exam Musculoskeletal: On physical examination of the right shoulder, the dressing is clean and dry. He is neurovascularly intact. Results & Data ([facility]) Vital Signs (Past 12 Hours) Vital Signs Temp Pulse Pulse Resp BP Pulse Ox 06/15/19 15:15 36.7 C 91 H 16 173/90 H 98 06/15/19 11:48 36.7 C 93 H 20 164/84 H 97 06/15/19 10:31 166/82 H 06/15/19 07:49 36.6 C 104 H 18 172/88 H 98 PG Care Time/CCT Total # of Minutes Spent Total Time Spent with Patient: Total time spent is greater than 50% in coordination of care (as documented) at patient's floor/unit and/or counseling patient: Coding Level of Care Code None Diagnoses Infection of prosthetic total shoulder joint T84.59XA; Z96.619
--- NOTE | 2019-06-15 16:42 | Discharge Summary ---
Date of Service June 15, 2019 Admission HPI Per Admitting Provider Rufino is a 73-year-old male with complaints of right shoulder pain that has been persistent since he had a right reverse total shoulder arthroplasty in October 2016. His shoulder replacement was done in [place]. His history goes that he had a work-related injury resulting in a rotator cuff tear, requiring surgery in 2015. He had good outcome with the rotator cuff surgery and was able to return to work for 3 weeks, however he sustained another injury during a fall while walking his dog. For this injury he had a fractured wrist and apparently massive rotator cuff tear. This was treated nonoperatively for some time, however he had significant pain interfere with daily activities. He was indicated for reverse right total shoulder arthroplasty which was completed in October 2016. He reports since that arthroplasty procedure he has not had any relief from pain. He reports "it has never felt right." He complains of daily pain. The pain occurs with activities of daily living such as doing laundry or cleaning the house or doing dishes. It seems more he does the more pain he has at night. The pain does interfere with sleep, however he says that he also wakes for frequent urination. He also has had a diffuse erythema over that shoulder for some time. He had a full work-up for infection, which is included laboratory work, bone scan, and eventual punch biopsy of the erythema about the shoulder. This work-up was all done with his surgeon in [place]. He was told there is no evidence of infection. He describes no sensation of looseness to the shoulder. He relates this shoulder is painful on the prominent area anteriorly. He denies any mechanical symptoms. He does report on occasion it feels like it is out of socket and he has a shifted back into place. This is rare. He has no pain that radiates down his upper extremity. He does have pain that spreads back to the shoulder blade. He denies any numbness or tingling. He denies any new injuries. He presented to our office for second opinion. We repeated the sed rate, CRP, and CBC. All of the infection markers were mildly elevated. He continued to have good function of his shoulder but continued to have a lot of pain. We tried him on a course of doxycycline oral antibiotic. This did not give him any relief. After failing years of conservative treatment, he has elected to proceed with a 1 stage revision of the right shoulder arthroplasty. Principal Diagnosis Infected right shoulder prosthesis Discharge Data Allergies Allergy/AdvReac Type Severity Reaction Status Date / Time Pglvmna-Xoy-Pgf Reductase Allergy Unknown abnormal Verified 06/12/19 05:34 Inhibitor blood work, mimicing heart attack Consultations 06/12/19 11:24 Consult Case Management - Discharge Planning Routine Consult Infectious Diseases Routine Procedures Performed Operation Date: 06/12/19 07:00 Actual Procedures p Right Shoulder Open Debridement, Lysis of Adhesions, Component Exchange, Revision Total Shoulder Arthroplasty(Right) - Huber Foster DO Ordered Studies 06/12/19 05:00 US - OR guided needle placemen Routine Hospital Course (1) Infection of prosthetic total shoulder joint: On June 12, 2019 Rufino arrived at [facility] and underwent a revision right shoulder arthroplasty without complication. He had a removal of a possibly infected prosthesis with a reimplantation. Postoperatively he was started on vancomycin and infectious disease was consulted. He was placed in a sling and transferred to the general orthopedic floors. His hospital course was uneventful. On postop day #1 his H&H was stable and his pain was well controlled. He was able to participate well with physical therapy and was having very little pain in his right shoulder. The cultures did not grow out anything. On postop day #2 he continued to do well. He did not have much pain in his right shoulder. He was already seen by infectious disease. The cultures were still negative. On postop day #3 the cultures were still negative. He was feeling well. The infectious disease physician was questioning whether were there was an infection. It may be a C ac ashley infection which can take up to 14 days to culture. He was then discharged to home on doxycycline 100 mg twice a day for 21 days. He will follow-up with orthopedics in 2 weeks. Total Time Total Time Spent Total Time Spent (In Minutes): 20 Discharge Plan Discharge Items Patient Disposition: Home - Self-Care Reason For Visit: RIGHT SHOULDER HARDWARE PAIN Discharge Diagnosis: Revision right reverse shoulder arthroplasty Activity: As commented below Non-emergency contact: Surgeon Call non-emergency contact if: your wound has increased redness and your wound has increased drainage Follow-up/Referrals: Priya Mckeon RN [Primary Care Provider] - Diet: Regular Addtl Attending Provider Instructions: Activity and Therapy Recommendations: * If you are using [facility] then therapy will be provided at your home until they feel you have accomplished all of your goals. * If you are using [facility] then Physical Therapy will be provided until they feel you are ready to start Outpatient Physical Therapy. * If you are not using home therapy then Outpatient Physical Therapy should start about 3-5 days from your day of surgery. Therapy will last about 8-12 weeks * Wear your sling for 3 weeks, unless otherwise instructed. You may remove your sling to shower and to dress, but otherwise, you should be in your sling at all times, including while sleeping * The shoulder replacement is very stable and you can use your hand while in the sling * You were shown a series of exercises in the hospital. Do these exercises daily including the exercises you were shown in physical therapy. Medications: * Narcotic You will likely be sent home from the hospital with a prescription for the narcotic pain medication that worked best throughout your stay. * Other medications may be prescribed for specific circumstances. If you have any questions, please call the office at . * Resume previous home medications unless otherwise instructed Dressing Care: Leave the plastic dressing in place for 5 days. After 5 days you may remove the plastic dressing. If the incision is not draining then you may leave the ej open to air. If there is a little bit of drainage or if the ej are getting stuck on your clothing then cover the incision with a dry dressing. The ej will be removed at your 2 week follow-up appointment. Showering: You may shower with the plastic dressing in place. Let the shower spray hit the other shoulder. You can pat the plastic dry. If the dressing becomes wet underneath the plastic then simply remove the dressing. Keep the incision dry until you are 5 days out from the day of surgery. At that time you can shower with the ej exposed. Let the soapy shower water run over the je and pat them dry. Do not scrub or soak the incision. Things To Watch For: * Drainage from the incision site that occurs more than one week after your surgery. * Increased redness at the incision site. * Fever above 102 degrees Fahrenheit. * Unusual chest pain or shortness of breath. * Call [facility] at with any of the above problems Follow-Up Visit: Follow-up with Dr. Cristian 2-3 weeks after your day of surgery. An appointment was probably scheduled when you signed-up for surgery in the office. If you have any questions call Office Instructions: More detailed instructions as well as Frequently Asked Questions were provided in a folder by our office when you signed-up for surgery. Please review these instructions when you get home. If you have any further questions or concerns, please feel free to call the office at [phone] Pending Studies at Discharge: No Stand-Alone Forms: My [facility], Smoking Cessation Medications and DC Order Prescriptions: New oxycodone 5 mg Tablet 5 mg PO Q4H PRN (Reason: pain) Qty: 30 RF: 0 doxycycline monohydrate 100 mg tablet 100 mg PO BID 21 Days Qty: 42 RF: 0 Continued lisinopril 20 mg tablet 20 mg PO QAM RF: 0 aspirin [Aspirin Low Dose] 81 mg Tablet,Delayed Release (Dr/Ec) 81 mg PO DAILY RF: 0 ascorbic acid (vitamin C) [Vitamin C With Lynnette Hips] 500 mg Tablet 500 mg PO DAILY RF: 0 methotrexate sodium 2.5 mg Tablet 25 mg PO WK RF: 0 niacin 500 mg Tablet 1,500 mg PO DAILY RF: 0 saw palmetto 500 mg Capsule 500 mg PO DAILY RF: 0 folic acid 800 mcg Tablet 0.8 mg PO DAILY RF: 0 Vision Formula (with lutein) 1,000 unit-200 mg-60 unit-2 mg Tablet 1 tab PO DAILY RF: 0 calcium carbonate-vitamin D3 [Calcium 600 + D(3)] 600 mg(1,500mg) -400 unit Tablet 1 tab PO DAILY RF: 0 potassium gluconate 595 mg (99 mg) Tablet 595 mg PO DAILY RF: 0 Lucas Oil-1000 1,000-200 mg Capsule 1 cap PO DAILY RF: 0 alpha lipoic acid 300 mg Capsule 300 mg PO DAILY RF: 0 cholecalciferol (vitamin D3) [Vitamin D3] 50 mcg (2,000 unit) Capsule 2,000 unit PO DAILY RF: 0 Centrum Silver Men 300-600-300 mcg Tablet 1 tab PO DAILY RF: 0 Cramp Desense 70 mg PO DAILY RF: 0 Holy Basil 1 tab PO DAILY RF: 0 Discharge Orders: Discharge Order (Routine); Ordered 06/15/19 Ordered By: Huber Foster Admission Data Admit Date/Time: 06/12/19 10:27 Attending Provider: Huber Foster Admit Provider: Huber Foster Primary Care Provider: Priya Mckeon Other Providers: Ranjeet Nava ; Priya Wing Coding Level of Care Code D/C Day Management <30 mins Diagnoses Infection of prosthetic total shoulder joint T84.59XA; Z96.619
[2019-06-16] MEDS ORDERED: VANCOMYCIN TROUGH ONE (01:30)
--- NOTE | 2019-06-25 07:35 | Coding Query ---
DEBRIDEMENT DOCUMENTATION To promote full compliance with coding requirements relating to patient care, physician participation is requested in all cases of generator assembler uncertainty. Please assist us with the question(s) below: Please place an X in the parenthesis (x). If other, please document the finding: Type of Debridement: ( X) Excisional Debridement- Cutting away necrotic, devitalized tissue or slough to the level of viable tissue using a sharp instrument (i.e. scalpel, scissors, etc.) ( ) Non Excisional Debridement- The removal of necrotic, devitalized tissue or slough bY means of scraping, mechanical brushing, flushing, or washing (i.e. irrigation,whirlpool);minor removal of loose fragments. ( ) Other (please specify): Thank you for your time, GENO Wynn, [facility]
== END 2019-06-15 17:43 | disposition home or self-care (01) | DRG 483 ==
LOC: ASU 04:51 → 3E 10:27

== ENCOUNTER 2023-07-07 16:50 | Inpatient (IN) ==
--- NOTE | 2023-07-07 17:21 | Emergency Department Note ---
Impression & Plan Pulmonary embolism, Breathlessness ED Provider Note Provider: Trey Fraire MD DATE OF SERVICE: 07/07/2023 CHIEF COMPLAINT: Shortness of breath HISTORY OF PRESENT ILLNESS: Patient is a 78-year-old gentleman history of PE in November presenting here today stating several weeks of worsening shortness of breath. Did have a fall about a week ago and seen by PCP 2 days ago. Patient evidently a week or 2 ago did suffer a mechanical fall tripped on some uneven pavement and fell and struck his head but no loss of conscious. No longer on anticoagulants for the last several months. Did have a DVT with PE again in November of last year. Little bit of bruising around the right eye and has some on and off headaches at times. No significant fevers or URI symptoms of cough or cold. Shortness of breath and dyspnea on exertion worse again with movement and activity. No chest pain. No leg tenderness with some trace swelling of the left ankle but none of the calf. No recent travel. Reports previously was on Eliquis but had side effects from it it was not covered by his insurance. PAST MEDICAL HISTORY: As noted above MEDICATIONS: Reviewed, no longer on anticoagulants SOCIAL HISTORY: Non-smoker PHYSICAL EXAM: GENERAL: alert and oriented in no acute distress on stretcher Head: normocephalic with a small amount of resolving contusion below the right eye EYES: No injection, discharge or icterus. EOMI. NECK: Trachea midline. ENT: Mucous membranes pink and moist. LUNGS: Airway patent. No retractions. Breath sounds clear with good air entry bilaterally. HEART: Regular rate and rhythm. No chest wall tenderness ABDOMEN: Soft and non-tender, without guarding or rebound. SKIN: Acyanotic, warm, dry, without rashes EXTREMITIES: Without swelling, tenderness or deformity NEUROLOGICAL: No focal deficits. No aphasia. No facial droop or slurred speech. Normal strength and tone in the extremities. Sensation to gross touch normal. Ambulatory. EK bpm normal sinus rhythm. No PVC or PAC. No acute ST segment elevation or depression. QTc 403. CONTINUOUS CARDIAC MONITORING: was ordered and showed a heart rate of70s to 90s bpm in normal sinus rhythm GCS 15. Patient's laboratory studies and imaging reviewed. Differential includes Reactive airway disease, pneumonia, pneumothorax, COPD, CHF, infections, cardiac ischemia, pulmonary embolism, musculoskeletal, gastrointestinal, as well as other pathologies. IMPRESSION/MEDICAL DECISION MAKING: Patient without significant recent travel or obvious evidence of swelling or calf tenderness on exam but history of PE/VTE this past fall no longer anticoagulation. Did tripped and suffered some contusion below the right eye. Will obtain head CT exclude bleed but no neurological deficits. Higher concern given his isolated shortness of breath and more dyspnea on exertion of possible recurrent PE. No other infectious symptoms low suspicion for infectious etiology or viral process such as COVID flu or pneumonia. EKG and troponin sent but seems less likely to be primarily cardiac. No clinical evidence of significant swelling concerning for heart failure. No significant abdominal symptoms or abdominal pain reported. Patient not hypoxic at rest. Blood counts reassuring. Chemistries normal. Troponin sent and returned to normal. No obvious STEMI. CT angiogram of the chest concerning for large right-sided PE. CT of the head without evidence of acute intracranial bleed. States he had significant side effects and dizziness with Eliquis and this was also not covered by his insurance. Given the large burden of clot on his right long discussed coming in for heparin drip with transition to long-term anticoagulant hopefully tomorrow. Discussed with patient and are in agreement this plan and hospitalist was contacted. DIAGNOSIS: Pulmonary embolism, dyspnea on exertion DISPOSITION: Hospitalist will evaluate Patient was agreeable with this plan. Critical Care I have personally spent 34 minutes of critical care time in the direct management of this patient. This includes bedside care, interpretation of diagnostic studies, and testing, discussion with consultants, patient, and family members, and other required patient management activities. These 34 minutes is in excess of all separately billable procedures. Past Med/Surg History Medical History (Updated 07/07/23 @ 17:56 by PEGGY Mosquera) Hyperlipidemia Osteoarthritis Psoriasis methotrexate weekly (Dermatology) Chronic steroid use High blood pressure High cholesterol Surgical History S/P left knee arthroscopy H/O repair of right rotator cuff arthroscopy H/O repair of left rotator cuff open History of colonoscopy History of cataract surgery bilateral History of tonsillectomy History of reverse total replacement of right shoulder joint H/O vasectomy Family History Father FHx: leukemia Family history of diabetes mellitus Grandmother (Paternal) Family history of diabetes mellitus Brother FHx: prostate cancer Other No family history of adverse response to anesthesia Social History Smoking Status: Never smoker Second Hand Exposure: No; Do You Dip or Chew Tobacco: No; Hx Alcohol Use: Yes Alcohol type: beer Hx Substance Use: No Preferred Language: Dutch Communication Ability: Effective 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 Beliefs That Will Affect Care: None marital status: Current Living Situation: Spouse Feels Safe at Home: Yes Assistive Devices: None Allergies Allergies Allergy/AdvReac Type Severity Reaction Status Date / Time Bqcvexv-KKV-DnD Reductase Allergy Unknown abnormal Verified 06/08/23 08:05 Inhibitor blood [Mtbimog-Naf-Zjx Reductase work, Inhibitor] mimicing heart attack Home Meds Home Medications Medication Instructions Recorded Confirmed Cramp Desense 70 mg PO DAILY 05/09/19 07/07/23 Holy Basil 1 tab PO DAILY 05/09/19 07/07/23 alpha lipoic acid 300 mg capsule 300 mg PO DAILY 05/09/19 07/07/23 ascorbic acid (vitamin C) 500 mg 500 mg PO DAILY 05/09/19 07/07/23 tablet (Vitamin C With Lynnette Hips) aspirin 81 mg tablet,delayed 81 mg PO DAILY 05/09/19 07/07/23 release (Jeanne Low Dose Aspirin) calcium carbonate 600 mg-vitamin 1 tab PO DAILY 05/09/19 07/07/23 D3 10 mcg (400 unit) tablet (Calcium 600 + D(3)) cholecalciferol (vitamin D3) 50 2,000 unit PO DAILY 05/09/19 07/07/23 mcg (2,000 unit) capsule (Vitamin D3) folic acid 800 mcg tablet 0.8 mg PO DAILY 05/09/19 07/07/23 methotrexate sodium 2.5 mg tablet 25 mg PO WK 05/09/19 07/07/23 vmzzltjc-fa-hzxdn 300 mcg-K 60 1 tab PO DAILY 05/09/19 07/07/23 mcg-lycop 600 mcg-lutein 300 mcg tablet (Centrum Silver Men) niacin 500 mg tablet 1,500 mg PO DAILY 05/09/19 07/07/23 potassium gluconate 595 mg (99 mg) 595 mg PO DAILY 05/09/19 07/07/23 tablet salmon oil-omega-3 fatty acids 1 cap PO DAILY 05/09/19 07/07/23 1,000 mg-200 mg capsule ([place] Oil-) saw palmetto 500 mg capsule 500 mg PO DAILY 05/09/19 07/07/23 vit A 300 mcg-C 200 mg-E 27 1 tab PO DAILY 05/09/19 07/07/23 mg-lutein 2 mg and minerals tablet (Vision Formula (with lutein)) metoprolol succinate 25 mg capsule 25 mg PO DAILY 06/25/19 07/07/23 sprinkle, ext. release 24 hr Previous Rx's Medication Instructions Recorded oxycodone 5 mg tablet 5 mg PO Q4H PRN pain #30 tabs 06/15/19 amoxicillin 500 mg capsule 500 mg PO BID #56 caps 09/16/20 amoxicillin 500 mg tablet 2,000 mg (4 x 500 mg) PO ONCE #4 10/20/21 tabs Results & Data (ED) Laboratory Data 07/07/23 13:24 07/07/23 13:24 Lab Results 07/07/23 Range/Units 13:24 WBC 12.42 H (4.8-10.8) K/ul RBC 4.47 L (4.70-6.10) M/uL Hgb 14.1 (14.0-18.0) g/dl Hct 39.9 L (42.0-52.0) % MCV 89.3 (80.0-100.0) fL MCH 31.5 (25.0-34.0) pg MCHC 35.3 (32.0-36.0) g/dL RDW Std Deviation 49.4 H (36.4-46.3) fL RDW Coeff of Sudeep 15.8 H (11.5-14.5) % Plt Count 177 (130-400) K/uL MPV 9.5 (9.4-12.4) fL Sodium 137 (136-145) mmol/L Potassium 4.1 (3.5-5.1) mmol/L Chloride 104 (98-107) mmol/L Carbon Dioxide 25 (21-32) mmol/L Anion Gap 8 (3-11) BUN 27 H (6-23) mg/dl Creatinine 0.89 (0.6-1.4) mg/dl Est Cr Clr Drug Dosing Not Reportable Est GFR ( Amer) 93.6 ml/min Est GFR (Non-Af Amer) 80.8 ml/min BUN/Creatinine Ratio 30.3 H (10-20) Glucose 114 H (70-99(Fasting)) mg/dl Calcium 8.5 L (8.6-10.3) mg/dl Total Bilirubin 0.4 (0.2-1.0) mg/dl AST 31 (13-39) U/L ALT 61 H (7-52) U/L Alkaline Phosphatase 36 (34-104) U/L Troponin I High Sens 11.1 (0-20) pg/ml Total Protein 5.8 L (6.0-8.3) gm/dl Albumin 3.5 (3.4-5.0) gm/dl Globulin 2.3 L (2.5-4.0) gm/dl Albumin/Globulin Ratio 1.5 (0.9-2) Administered Medications Heparin Sodium (Porcine) (Heparin Sod (Porcine) 1000 Unit/Ml) 5,000 units IV TODAY@1801 [facility] Stop: 07/07/23 21:00 Last Admin: 07/07/23 18:35 Dose: 5,000 units Documented By: JEANNA Co-signed By: MARIA D Heparin Sodium/Dextrose (Heparin Sodium/Dextrose) 25,000 units in 500 mls @ 23 mls/hr IV .[id number] [facility]; Protocol Stop: 08/06/23 18:14 Last Admin: 07/07/23 18:35 Dose: 1,150 units/hr, 23 mls/hr Documented By: JEANNA Co-signed By: MARIA D Discontinued Medications Ioversol (Optiray 350 500ml) 99 ml IV ONCE ONE Stop: 07/07/23 17:24 Last Admin: 07/07/23 17:23 Dose: 99 ml Documented By: EARomie Imaging Data Radiologist's Impression: Chest CTA 07/07/23 00:00 CHEST CTA for PULMONARY ARTERIES CT DOSE: HISTORY: Fall. Dyspnea. TECHNIQUE: Multiaxial CT images of the chest were performed following the intravenous administration of contrast to evaluate the pulmonary arteries. 3D/Maximal intensity projection images were also obtained. Sagittal and coronal reformations were also reviewed. A dose lowering technique was utilized adhering to the principles of ALARA. COMPARISON STUDY: None. FINDINGS: Normal caliber thoracic aorta with no evidence for a dissection. The heart is normal in size. Multiple filling defects seen within the distal right main pulmonary artery and extending into all of the right lobar pulmonary arteries as well as multiple right segmental pulmonary arteries. This is consistent with extensive right-sided pulmonary emboli. No evidence for right- sided heart strain at this time. The thyroid gland enhances normally. Limited views of the upper abdomen demonstrate a normal liver, spleen, and adrenal glands. Normal esophagus. No pleural or pericardial effusions. No mediastinal or hilar lymphadenopathy. No acute fractures within the chest. No pneumothorax. The central airways are patent. Punctate calcification within the left lower lobe. There is an 8 mm nodule within the base of the right lower lobe on image 49. This contains a punctate calcification. Small linear scarlike density within the periphery the right lower lobe. Punctate calcified granuloma within the right lower lobe. A 4 mm subpleural nodule within the right upper lobe on image 195. Punctate calcified granuloma within the right lung apex. A 4 mm nodule within the right upper lobe on image 179. Mild dependent changes seen at the lung bases. Small peripheral groundglass densities within the left upper lobe best seen on image 139. IMPRESSION: 1. Extensive right-sided pulmonary emboli. No evidence for right-sided heart strain. 2. Small peripheral groundglass airspace opacity within the left upper lobe. This is nonspecific but could represent a small focus of inflammatory/infectious change. A developing pulmonary infarct is also considered in the differential diagnosis. 3. A few scattered pulmonary nodules with the largest in the right lower lobe measuring 8 mm. Please refer to the chart below for recommended follow-up. Please refer to below summary of Fleischner criteria recommendations for follow- up of incidental CT nodules (Ousmane Cabrales, Guidelines for management of small pulmonary nodules detected on CT scans: A statement from the Fleischner Society, Radiology 237: [phone].) SOLID NODULES Solitary nodule size: <6 mm * Low risk patients: no follow-up needed * high risk patients: optional CT at 12 months Solitary nodule size: 6-8 mm * Low risk patients: follow-up at 6-12 months, then consider further follow-up at 18-24 months * high risk patients: initial follow-up CT at 6-12 months and then at 18-24 months if no change Solitary nodule size: >8 mm * either low or high risk patients - consider follow-up CT at 3 months, and/or CT-PET, and/or biopsy Multiple nodules size: <6 mm * Low risk patients: no routine follow-up * high risk patients: optional CT at 12 months Multiple nodules size: 6-8 mm * Low risk patients: follow-up at 3-6 months, then consider further follow-up at 18-24 months * high risk patients: follow-up at 3-6 months, then at 18-24 months if no change Multiple nodules size: >8 mm * Low risk patients: follow-up at 3-6 months, then consider further follow-up at 18-24 months * high risk patients: follow-up at 3-6 months, then at 18-24 months if no change Note: newly detected indeterminate nodule in persons 35 years of age or older. * Low risk patients: minimal or absent history of smoking and/or other known risk factors * high risk patients: history of smoking or of other known risk factors (e.g. first degree relative with lung cancer, or exposure to asbestos, radon, uranium) * if a nodule up to 8 mm is partly solid or is ground glass further follow-up is required after 24 months to exclude possible slow growing adenocarcinoma (CARLOS) SUBSOLID NODULES Solitary pure ground-glass nodule * nodule size <6 mm - no CT follow-up required * nodule size >=6 mm - follow-up CT at 6-12 months, then every 2 years until 5 years Solitary part-solid nodule * nodule size <6 mm - no CT follow-up required * nodule size >=6 mm - follow-up CT at 3-6 months. If unchanged, and solid component remains <6 mm, then annual follow-up for 5 years Multiple subsolid nodules * nodule size <6 mm - follow-up CT at 3-6 months, consider further follow-up at 2 and 4 years if stable * nodule size >=6 mm - follow-up CT at 3-6 months, subsequent management based on the most suspicious nodule(s) ACT 112: Negative or not required by law. Electronically signed by: Kennedy Soriano M.D. 07/07/2023 5:[address] 07/07/23 00:[address] WITHOUT CONTRAST CLINICAL HISTORY: Fall. COMPARISON STUDY: No previous studies for comparison. TECHNIQUE: Axial images of the head were obtained without IV contrast. Sagittal and coronal reconstructions were viewed. Automated exposure control was utilized for the study. A dose lowering technique was utilized adhering to the principles of ALARA. FINDINGS: No acute intracranial hemorrhage, midline shift or mass effect is present. Ventricular system is unremarkable. Basal cisterns are patent. There are no extra-axial collections. There are no findings to suggest acute dural sinus thrombosis or acute territorial infarct. No calvarial fractures are identified. IMPRESSION: 1. No acute intracranial findings. 2. No calvarial fractures. ACT 112: Negative or not required by law. Electronically signed by: Stefan Russ M.D. 07/07/2023 4:53 PM Discharge Plan Visit Data Chief Complaint: Shortness of Breath/Dyspnea Stated Complaint: SOB ED Provider: Trey Fraire Discharge Problem: Pulmonary embolism, Breathlessness Patient Disposition: Being Evaluated by Hospitalist Forms Stand Alone Forms: My [facility] Prescriptions Prescriptions: No Action amoxicillin 500 mg capsule 500 mg PO BID Qty: 56 0RF amoxicillin 500 mg tablet 2,000 mg PO ONCE Qty: 4 4RF Rx Instructions: 4 tabs 1 hour prior to procedure metoprolol succinate 25 mg capsule,sprinkle,ER 24hr 25 mg PO DAILY aspirin [Jeanne Low Dose Aspirin] 81 mg Tablet,Delayed Release (Dr/Ec) 81 mg PO DAILY ascorbic acid (vitamin C) [Vitamin C With Lynnette Hips] 500 mg Tablet 500 mg PO DAILY methotrexate sodium 2.5 mg Tablet 25 mg PO WK Rx Instructions: total of 10 tablets niacin 500 mg Tablet 1,500 mg PO DAILY saw palmetto 500 mg Capsule 500 mg PO DAILY folic acid 800 mcg Tablet 0.8 mg PO DAILY Vision Formula (with lutein) 1,000 unit-200 mg-60 unit-2 mg Tablet 1 tab PO DAILY calcium carbonate-vitamin D3 [Calcium 600 + D(3)] 600 mg(1,500mg) -400 unit Tablet 1 tab PO DAILY potassium gluconate 595 mg (99 mg) Tablet 595 mg PO DAILY [place] [employer]-1000 1,000-200 mg Capsule 1 cap PO DAILY alpha lipoic acid 300 mg Capsule 300 mg PO DAILY cholecalciferol (vitamin D3) [Vitamin D3] 50 mcg (2,000 unit) Capsule 2,000 unit PO DAILY Centrum Silver Men 300-600-300 mcg Tablet 1 tab PO DAILY Cramp Desense 70 mg PO DAILY Rx Instructions: [employer] Holy Basil 1 tab PO DAILY Rx Instructions: Milad Elizabeth oxycodone 5 mg Tablet 5 mg PO Q4H PRN (Reason: pain) Qty: 30 0RF Referrals Referrals: Priya Mckeon PA-C [Primary Care Provider] -
[2023-07-07 17:23] LABS: Hematocrit (blood only) 39.9 % (42.0-52.0); Hemoglobin 14.1 g/dl (14.0-18.0); Mean Corpuscular Hemoglobin 31.5 pg (25.0-34.0); Mean Corpuscular Hgb Conc 35.3 g/dL (32.0-36.0); Mean Corpuscular Volume 89.3 fL (80.0-100.0); Mean Platelet Volume 9.5 fL (9.4-12.4); Platelet Count 177 K/uL (130-400); RDW Coefficient of Variation 15.8 % (11.5-14.5); RDW Standard Deviation 49.4 fL (36.4-46.3); Red Blood Count 4.47 M/uL (4.70-6.10); Troponin I High Sensitivity 11.1 pg/ml (0-20); White Blood Count 12.42 K/ul (4.8-10.8)
[2023-07-07] MEDS: OPTIRAY 350 500ml IV ONE (17:23)
--- NOTE | 2023-07-07 17:37 | CT Scan Report ---
HEAD CT WITHOUT CONTRAST CLINICAL HISTORY: Fall. COMPARISON STUDY: No previous studies for comparison. TECHNIQUE: Axial images of the head were obtained without IV contrast. Sagittal and coronal reconstru ctions were viewed. Automated exposure control was utilized for the study. A dose lowering technique was utilized adhering to the principles of ALARA. FINDINGS: No acute intracranial hemorrhage, midline shift or mass effect is present. Ventricular syst em is unremarkable. Basal cisterns are patent. There are no extra-axial collections. There are no fin dings to suggest acute dural sinus thrombosis or acute territorial infarct. No calvarial fractures ar e identified. IMPRESSION: 1. No acute intracranial findings. 2. No calvarial fractures. ACT 112: Negative or not required by law. Electronically signed by: Stefan Russ M.D. 07/07/2023 4:53 PM
--- NOTE | 2023-07-07 17:37 | CT Scan Report ---
CHEST CTA for PULMONARY ARTERIES CT DOSE: HISTORY: Fall. Dyspnea. TECHNIQUE: Multiaxial CT images of the chest were performed following the intravenous administration of contrast to evaluate the pulmonary arteries. 3D/Maximal intensity projection images were also obta ined. Sagittal and coronal reformations were also reviewed. A dose lowering technique was utilized a dhering to the principles of ALARA. COMPARISON STUDY: None. FINDINGS: Normal caliber thoracic aorta with no evidence for a dissection. The heart is normal in siz e. Multiple filling defects seen within the distal right main pulmonary artery and extending into all of the right lobar pulmonary arteries as well as multiple right segmental pulmonary arteries. This i s consistent with extensive right-sided pulmonary emboli. No evidence for right-sided heart strain at this time. The thyroid gland enhances normally. Limited views of the upper abdomen demonstrate a nor mal liver, spleen, and adrenal glands. Normal esophagus. No pleural or pericardial effusions. No medi astinal or hilar lymphadenopathy. No acute fractures within the chest. No pneumothorax. The central a irways are patent. Punctate calcification within the left lower lobe. There is an 8 mm nodule within the base of the right lower lobe on image 49. This contains a punctate calcification. Small linear sc arlike density within the periphery the right lower lobe. Punctate calcified granuloma within the rig ht lower lobe. A 4 mm subpleural nodule within the right upper lobe on image 195. Punctate calcified granuloma within the right lung apex. A 4 mm nodule within the right upper lobe on image 179. Mild de pendent changes seen at the lung bases. Small peripheral groundglass densities within the left upper lobe best seen on image 139. IMPRESSION: 1. Extensive right-sided pulmonary emboli. No evidence for right-sided heart strain. 2. Small peripheral groundglass airspace opacity within the left upper lobe. This is nonspecific but could represent a small focus of inflammatory/infectious change. A developing pulmonary infarct is al so considered in the differential diagnosis. 3. A few scattered pulmonary nodules with the largest in the right lower lobe measuring 8 mm. Please refer to the chart below for recommended follow-up. Please refer to below summary of Fleischner criteria recommendations for follow-up of incidental CT n odules (Ousmane Cabrales, Guidelines for management of small pulmonary nodules detected on CT scans: A sta tement from the Fleischner Society, Radiology 237: [phone].) SOLID NODULES Solitary nodule size: <6 mm * Low risk patients: no follow-up needed * high risk patients: optional CT at 12 months Solitary nodule size: 6-8 mm * Low risk patients: follow-up at 6-12 months, then consider further follow-up at 18-24 months * high risk patients: initial follow-up CT at 6-12 months and then at 18-24 months if no change Solitary nodule size: >8 mm * either low or high risk patients - consider follow-up CT at 3 months, and/or CT-PET, and/or biopsy Multiple nodules size: <6 mm * Low risk patients: no routine follow-up * high risk patients: optional CT at 12 months Multiple nodules size: 6-8 mm * Low risk patients: follow-up at 3-6 months, then consider further follow-up at 18-24 months * high risk patients: follow-up at 3-6 months, then at 18-24 months if no change Multiple nodules size: >8 mm * Low risk patients: follow-up at 3-6 months, then consider further follow-up at 18-24 months * high risk patients: follow-up at 3-6 months, then at 18-24 months if no change Note: newly detected indeterminate nodule in persons 35 years of age or older. * Low risk patients: minimal or absent history of smoking and/or other known risk factors * high risk patients: history of smoking or of other known risk factors (e.g. first degree relative with lung cancer, or exposure to asbestos, radon, uranium) * if a nodule up to 8 mm is partly solid or is ground glass further follow-up is required after 24 m ont to exclude possible slow growing adenocarcinoma (CARLOS) SUBSOLID NODULES Solitary pure ground-glass nodule * nodule size <6 mm - no CT follow-up required * nodule size >=6 mm - follow-up CT at 6-12 months, then every 2 years until 5 years Solitary part-solid nodule * nodule size <6 mm - no CT follow-up required * nodule size >=6 mm - follow-up CT at 3-6 months. If unchanged, and solid component remains <6 mm, then annual follow-up for 5 years Multiple subsolid nodules * nodule size <6 mm - follow-up CT at 3-6 months, consider further follow-up at 2 and 4 years if sta ble * nodule size >=6 mm - follow-up CT at 3-6 months, subsequent management based on the most suspiciou s nodule(s) ACT 112: Negative or not required by law. Electronically signed by: Kennedy Soriano M.D. 07/07/2023 5:03 PM
[2023-07-07 17:40] LABS: Alanine Aminotransferase 61 U/L (7-52); Albumin Globulin Ratio 1.5 (0.9-2); Albumin Level 3.5 gm/dl (3.4-5.0); Alkaline Phosphatase 36 U/L (34-104); Anion Gap 8 (3-11); Aspartate Aminotransferase 31 U/L (13-39); BUN Creatinine Ratio 30.3 (10-20); Bilirubin,Total 0.4 mg/dl (0.2-1.0); Blood Urea Nitrogen 27 mg/dl (6-23); Calcium 8.5 mg/dl (8.6-10.3); Carbon Dioxide 25 mmol/L (21-32); Chloride 104 mmol/L (98-107); Est GFR (African American) 93.6 ml/min; Est GFR (Non-African American) 80.8 ml/min; Globulin 2.3 gm/dl (2.5-4.0); Glucose 114 mg/dl (70-99(Fasting)); Potassium 4.1 mmol/L (3.5-5.1); Sodium 137 mmol/L (136-145); Total Protein 5.8 gm/dl (6.0-8.3)
--- NOTE | 2023-07-07 17:43 | History & Physical Report ---
Date of Service July 07, 2023 Assessment & Plan (1) Pulmonary embolism: (2) High blood pressure: (3) Psoriasis: (4) Hyperlipidemia: Plan Mr. Serra is an 78 year old male that presents to the ED today with exertional SOB. He reports that his exertional SOB has been occurring for the past few weeks. 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 He took the Eliquis for a few months and stopped taking it as he described 'dizziness' and 'headaches' after taking it. He did not stop the Eliquis by provider recommendation and did not notify his provider that he stopped it. No recent travel. Additional past medical history includes HTN (takes Lisinopril), HLD (Takes Niacin), and psoriasis (Follows with Dermatology and takes Methotrexate). Head CT negative for ICH, SDH or midline shift. Chest CT reveals Extensive right-sided pulmonary emboli. No evidence for right-sided heart strain. Small peripheral ground-glass airspace opacity within the left upper lobe. This is nonspecific but could represent a small focus of inflammatory/infectious change. A developing pulmonary infarct is also considered in the differential diagnosis. A few scattered pulmonary nodules with the largest in the right lower lobe measuring 8 mm. Patient denies fevers, chills, cough, headache, dizziness, chest pain, palpitations, abdominal pain or tenderness, nausea, vomiting, diarrhea. Pt sitting in his hospital bed in no apparent distress. S1/S2 on auscultation without any additional heart sounds, euvolemic on exam. Patient will be admitted for treatment of his recurrent pulmonary emboli with IV heparin drip started in ED with bolus. Will obtain ECHO to determine if any heart strain and also involve Pulmonary for consultation g ely extensive amount of PE and with recurrence that will require bridging therapy. Pulmonary embolism: Acute History of DVT 12/08; was on Eliquis x 6 months and stopped due to symptoms No recent travel Troponin 11 Heparin drip started in ED with bolus; continue Suspect bridging to Xarelto or Coumadin after therapeutic on Heparin ECHO ordered Will check BNP Pulmonary consultation placed given extensive PE HTN: Chronic Takes metoprolol; continue HLD: Chronic Takes niacin and other diet modifications for management Psoriasis: Chronic takes methotrexate Tu/Th Check LFTs Disposition: PCP: Priya Mckeon PA-C with [facility] CODE STATUS: Full code VTE prophylaxis: Heparin drip I spent a total of 87 minutes coordinating, documenting, and providing care for this patient excluding time spent in the performance of separately billed services. All of the aforementioned completed while collaborating with the assigned attending physician for a full treatment plan. Please see their addendum for further details. History of Present Illness Chief Complaint: SOB Primary Care Provider: Priya Mckeon PA-C Mr. Serra is an 78 year old male that presents to the ED today with SOB. He reports that his exertional SOB has been occurring for the past few weeks. 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 He took the Eliquis for a few months and stopped taking it as he described 'dizziness' and 'headaches' after taking it. He did not stop the Eliquis by provider recommendation and did not notify his provider that he stopped it. No recent travel. Additional past medical history includes HTN (takes Lisinopril), HLD (Takes Niacin), and psoriasis (Follows with Dermatology and takes Methotrexate). Head CT negative for ICH, SDH or midline shift. Chest CT reveals Extensive right-sided pulmonary emboli. No evidence for right- sided heart strain. Small peripheral ground-glass airspace opacity within the left upper lobe. This is nonspecific but could represent a small focus of inflammatory/infectious change. A developing pulmonary infarct is also considered in the differential diagnosis. A few scattered pulmonary nodules with the largest in the right lower lobe measuring 8 mm. Patient denies fevers, chills, cough, headache, dizziness, chest pain, palpitations, abdominal pain or tenderness, nausea, vomiting, diarrhea. Denies tobacco or recreational drug use. Does drink one beer daily but no adverser symp toms if he does not have a beer. Pt sitting in his hospital bed in no apparent distress. S1/S2 on auscultation without any additional heart sounds, euvolemic on exam. Confirmed patient has an advanced directive and is a DNR/DNI. Patient will be admitted for treatment of his recurrent pulmonary emboli with IV heparin drip started in ED with bolus. Will obtain ECHO and also involve Pulmonary for consultation give extensive amount of PE and with recurrence that will require bridging therapy. Please see A/P for further details. Allergies Allergy/AdvReac Type Severity Reaction Status Date / Time Sxzyacm-DRE-QqW Reductase Allergy Unknown abnormal Verified 06/08/23 08:05 Inhibitor blood [Mvzamwd-Vce-Vvd Reductase work, Inhibitor] mimicing heart attack Home Medications Medication Instructions Recorded Confirmed Type Cramp Desense 70 mg PO DAILY 05/09/19 07/07/23 History Holy Basil 1 tab PO DAILY 05/09/19 07/07/23 History alpha lipoic acid 300 mg capsule 300 mg PO DAILY 05/09/19 07/07/23 History ascorbic acid (vitamin C) 500 mg 500 mg PO DAILY 05/09/19 07/07/23 History tablet (Vitamin C With Lynnette Hips) aspirin 81 mg tablet,delayed 81 mg PO DAILY 05/09/19 07/07/23 History release (Jeanne Low Dose Aspirin) calcium carbonate 600 mg-vitamin 1 tab PO DAILY 05/09/19 07/07/23 History D3 10 mcg (400 unit) tablet (Calcium 600 + D(3)) cholecalciferol (vitamin D3) 50 2,000 unit PO DAILY 05/09/19 07/07/23 History mcg (2,000 unit) capsule (Vitamin D3) folic acid 800 mcg tablet 0.8 mg PO DAILY 05/09/19 07/07/23 History methotrexate sodium 2.5 mg tablet 25 mg PO WK 05/09/19 07/07/23 History vmsuzyot-na-njdxr 300 mcg-K 60 1 tab PO DAILY 05/09/19 07/07/23 History mcg-lycop 600 mcg-lutein 300 mcg tablet (Centrum Silver Men) niacin 500 mg tablet 1,500 mg PO DAILY 05/09/19 07/07/23 History potassium gluconate 595 mg (99 mg) 595 mg PO DAILY 05/09/19 07/07/23 History tablet salmon oil-omega-3 fatty acids 1 cap PO DAILY 05/09/19 07/07/23 History 1,000 mg-200 mg capsule (Ridgeway Oil-) saw palmetto 500 mg capsule 500 mg PO DAILY 05/09/19 07/07/23 History vit A 300 mcg-C 200 mg-E 27 1 tab PO DAILY 05/09/19 07/07/23 History mg-lutein 2 mg and minerals tablet (Vision Formula (with lutein)) oxycodone 5 mg tablet 5 mg PO Q4H PRN pain #30 tabs 06/15/19 07/07/23 Rx metoprolol succinate 25 mg capsule 25 mg PO DAILY 06/25/19 07/07/23 History sprinkle, ext. release 24 hr amoxicillin 500 mg capsule 500 mg PO BID #56 caps 09/16/20 07/07/23 Rx amoxicillin 500 mg tablet 2,000 mg (4 x 500 mg) PO ONCE #4 10/20/21 07/07/23 Rx tabs Past Med/Surg History Medical History (Updated 07/07/23 @ 17:56 by PEGGY Mosquera) Hyperlipidemia Osteoarthritis Psoriasis methotrexate weekly (Dermatology) Chronic steroid use High blood pressure High cholesterol Surgical History S/P left knee arthroscopy H/O repair of right rotator cuff arthroscopy H/O repair of left rotator cuff open History of colonoscopy History of cataract surgery bilateral History of tonsillectomy History of reverse total replacement of right shoulder joint H/O vasectomy Family History Father FHx: leukemia Family history of diabetes mellitus Grandmother (Paternal) Family history of diabetes mellitus Brother FHx: prostate cancer Other No family history of adverse response to anesthesia Social History Smoking Status: Never smoker Second Hand Exposure: No; Do You Dip or Chew Tobacco: No; Hx Alcohol Use: Yes Alcohol type: beer Hx Substance Use: No Preferred Language: Finnish Communication Ability: Effective Auto Body Estimator Required: No Beliefs That Will Affect Care: None marital status: Current Living Situation: Spouse Feels Safe at Home: Yes Assistive Devices: None Review of Systems Review of Systems: Neuro: (-) Falls, trauma, slurred speech HEENT: (-) MARQUES, dizziness, dysphagia, visual or auditory changes CV: (-) CP, palpitations, swelling Resp: (+) SOB GI: (-) appetite changes, N/V/D, bowel changes : (-) urinary changes Skin: (-) rashes Psych: (-) anxiety, depression Physical Exam Physical Exam: Neuro: AAOx4, PERRLA, no aphagia, memory changes, CNII-XII grossly intact HEENT: head normocephalic, moist mucus membranes CV: S1/S2, (-) M/G/R, (-) edema, cap refill < 3 seconds Resp: Lungs CTA in all arellano. On RA GI: Abdomen S/NT/ND, Ax4 bowel sounds, (-) CVA tenderness Musculoskeletal: 5/5 B/L UE strength, 5/5 B/L LE strength. No gait disturbance Skin: (-) rashes , (-) erythema. Psych: euthymic mood Results & Data Results & Data Laboratory Results Short CBC 07/07/23 Range/Units 13:24 WBC 12.42 H (4.8-10.8) K/ul Hgb 14.1 (14.0-18.0) g/dl Hct 39.9 L (42.0-52.0) % Plt Count 177 (130-400) K/uL BMP 07/07/23 13:24 Sodium 137 Potassium 4.1 Chloride 104 Carbon Dioxide 25 BUN 27 H Creatinine 0.89 Glucose 114 H Calcium 8.5 L Liver Function 07/07/23 Range/Units 13:24 Total Bilirubin 0.4 (0.2-1.0) mg/dl AST 31 (13-39) U/L ALT 61 H (7-52) U/L Alkaline Phosphatase 36 (34-104) U/L Albumin 3.5 (3.4-5.0) gm/dl Diagnostic Findings Chest CTA 07/07/23 00:00 CHEST CTA for PULMONARY ARTERIES CT DOSE: HISTORY: Fall. Dyspnea. TECHNIQUE: Multiaxial CT images of the chest were performed following the intravenous administration of contrast to evaluate the pulmonary arteries. 3D/Maximal intensity projection images were also obtained. Sagittal and coronal reformations were also reviewed. A dose lowering technique was utilized adhering to the principles of ALARA. COMPARISON STUDY: None. FINDINGS: Normal caliber thoracic aorta with no evidence for a dissection. The heart is normal in size. Multiple filling defects seen within the distal right main pulmonary artery and extending into all of the right lobar pulmonary arteries as well as multiple right segmental pulmonary arteries. This is consistent with extensive right-sided pulmonary emboli. No evidence for right- sided heart strain at this time. The thyroid gland enhances normally. Limited views of the upper abdomen demonstrate a normal liver, spleen, and adrenal glands. Normal esophagus. No pleural or pericardial effusions. No mediastinal or hilar lymphadenopathy. No acute fractures within the chest. No pneumothorax. The central airways are patent. Punctate calcification within the left lower lobe. There is an 8 mm nodule within the base of the right lower lobe on image 49. This contains a punctate calcification. Small linear scarlike density within the periphery the right lower lobe. Punctate calcified granuloma within the right lower lobe. A 4 mm subpleural nodule within the right upper lobe on image 195. Punctate calcified granuloma within the right lung apex. A 4 mm nodule within the right upper lobe on image 179. Mild dependent changes seen at the lung bases. Small peripheral groundglass densities within the left upper lobe best seen on image 139. IMPRESSION: 1. Extensive right-sided pulmonary emboli. No evidence for right-sided heart strain. 2. Small peripheral groundglass airspace opacity within the left upper lobe. This is nonspecific but could represent a small focus of inflammatory/infectious change. A developing pulmonary infarct is also considered in the differential diagnosis. 3. A few scattered pulmonary nodules with the largest in the right lower lobe measuring 8 mm. Please refer to the chart below for recommended follow-up. Please refer to below summary of Fleischner criteria recommendations for follow- up of incidental CT nodules (Ousmane Cabrales, Guidelines for management of small pulmonary nodules detected on CT scans: A statement from the Fleischner Society, Radiology 237: [phone].) SOLID NODULES Solitary nodule size: <6 mm * Low risk patients: no follow-up needed * high risk patients: optional CT at 12 months Solitary nodule size: 6-8 mm * Low risk patients: follow-up at 6-12 months, then consider further follow-up at 18-24 months * high risk patients: initial follow-up CT at 6-12 months and then at 18-24 months if no change Solitary nodule size: >8 mm * either low or high risk patients - consider follow-up CT at 3 months, and/or CT-PET, and/or biopsy Multiple nodules size: <6 mm * Low risk patients: no routine follow-up * high risk patients: optional CT at 12 months Multiple nodules size: 6-8 mm * Low risk patients: follow-up at 3-6 months, then consider further follow-up at 18-24 months * high risk patients: follow-up at 3-6 months, then at 18-24 months if no change Multiple nodules size: >8 mm * Low risk patients: follow-up at 3-6 months, then consider further follow-up at 18-24 months * high risk patients: follow-up at 3-6 months, then at 18-24 months if no change Note: newly detected indeterminate nodule in persons 35 years of age or older. * Low risk patients: minimal or absent history of smoking and/or other known risk factors * high risk patients: history of smoking or of other known risk factors (e.g. first degree relative with lung cancer, or exposure to asbestos, radon, uranium) * if a nodule up to 8 mm is partly solid or is ground glass further follow-up is required after 24 months to exclude possible slow growing adenocarcinoma (CARLOS) SUBSOLID NODULES Solitary pure ground-glass nodule * nodule size <6 mm - no CT follow-up required * nodule size >=6 mm - follow-up CT at 6-12 months, then every 2 years until 5 years Solitary part-solid nodule * nodule size <6 mm - no CT follow-up required * nodule size >=6 mm - follow-up CT at 3-6 months. If unchanged, and solid component remains <6 mm, then annual follow-up for 5 years Multiple subsolid nodules * nodule size <6 mm - follow-up CT at 3-6 months, consider further follow-up at 2 and 4 years if stable * nodule size >=6 mm - follow-up CT at 3-6 months, subsequent management based on the most suspicious nodule(s) ACT 112: Negative or not required by law. Electronically signed by: Kennedy Soriano M.D. 07/07/2023 5:[address] 07/07/23 00:[address] WITHOUT CONTRAST CLINICAL HISTORY: Fall. COMPARISON STUDY: No previous studies for comparison. TECHNIQUE: Axial images of the head were obtained without IV contrast. Sagittal and coronal reconstructions were viewed. Automated exposure control was utilized for the study. A dose lowering technique was utilized adhering to the principles of ALARA. FINDINGS: No acute intracranial hemorrhage, midline shift or mass effect is present. Ventricular system is unremarkable. Basal cisterns are patent. There are no extra-axial collections. There are no findings to suggest acute dural sinus thrombosis or acute territorial infarct. No calvarial fractures are identified. IMPRESSION: 1. No acute intracranial findings. 2. No calvarial fractures. ACT 112: Negative or not required by law. Electronically signed by: Stefan Russ M.D. 07/07/2023 4:53 PM Code Status & VTE Plan Code Status Full code event of cardiac respiratory arrest Supervising Physician Co-Signing Physician Notes I have seen and discussed the case with the collaborating advanced practitioner. I agree with the above H&P. I have reviewed and confirmed the patients medical history, the findings on physical examination, and the patients diagnosis and treatment plan with Kendy WOODS and agree with the information documented. In short, Mr. Serra is an 78 year old man with history of HTN, HLD, psoasrisis and prior DVT/PE who was admitted for management of acute pulmonary emboli. Patient states he was on 4 months eliquis when he self-discontinued 2/2 dizziness/headache with the medication. This was roughly 03/2023. He reports feeling fine until a few weeks ago, when he noted ongoing, progressive SOB, thus leading to presentation. Chest CT reveals Extensive right-sided pulmonary embo li. GENERAL APPEARANCE: AxOx4, generally well-appearing male, no acute distress. HEENT: NC, AT. MMM. EOMI, clear conjunctiva, oropharynx clear. NECK: Supple without lymphadenopathy. No stiffness or restricted ROM. HEART: Normal rate and regular rhythm, normal S1/S1, no m/r/g LUNGS: CTAB, moving air well. No crackles or wheezes are heard. ABDOMEN: Soft, nontender, nondistended with good bowel sounds heard. EXTREMITIES: Without cyanosis, clubbing or edema. NEUROLOGICAL: Grossly nonfocal. Alert and oriented, moving all 4 extremities. CN not formally tested but appear grossly intact. Skin: Warm and dry without any rash. : #Acute pulmonary emboli, unprovoked Heparin drip ECHO Consider xarelto v coumadin Pulm consult Will need op heme/onc follow up Rest of plan as above I spent a total of 25 minutes coordinating, documenting, and providing care for this patient excluding time spent in the performance of separately billed services. All of the aforementioned completed outside of collaborating with the assigned advanced practitioner for a full treatment plan. I have reviewed the advanced practitioner's documentation, and I agree with, and take responsibility for the plan of care
[2023-07-07] MEDS ORDERED: ALUMINUM/MAGNESIUM SUSP 30 ML UDC PO PRN (17:51)
[2023-07-07] MEDS ORDERED: ACETAMINOPHEN 325 MG TAB PO PRN (17:51)
[2023-07-07] MEDS ORDERED: POLYETHYLENE (MIRALAX) 17 GM PACK PO PRN (17:51)
[2023-07-07] MEDS ORDERED: MAGNESIUM HYDROXIDE SUSP 30 ML UDC PO PRN (17:51)
[2023-07-07] MEDS ORDERED: ONDANSETRON INJ 2 MG/ML 2 ML VIAL IV PRN (17:51)
[2023-07-07] MEDS ORDERED: HEPARIN SOD (PORCINE) 1000 UNIT/ML IV ONE (18:01)
[2023-07-07] MEDS: HEPARIN SODIUM/DEXTROSE 25,000 UNITS/500 ML BAG IV SCH (18:35)
[2023-07-07] MEDS: HEPARIN SOD (PORCINE) 1000 UNIT/ML IV SCH (18:35)
[2023-07-07] MEDS: Heparin IV Adult Wt-Based Standard w/ INITIAL Bolus Protocol IV STA (19:13)
[2023-07-07 19:18] LABS: Partial Thromboplastin Ratio 0.8; Partial Thromboplastin Time 23 Seconds (21-31)
[2023-07-07 19:24] LABS: Basophils # (auto) 0.04 K/uL (0.00-0.20); Basophils % (auto) 0.3 %; Echinocytes 1+; Immature Granulocytes # (auto) 0.86 K/uL (0.01-0.20); Immature Granulocytes % (auto) 6.9 %; Lymphocytes # (auto) 1.58 K/uL (1.20-3.40); Lymphocytes % (auto) 12.7 %; Monocytes # (auto) 1.12 K/uL (0.11-0.59); Neutrophils # (auto) 8.82 K/uL (1.40-6.50); Neutrophils % (auto) 71.1 %
[2023-07-07 19:25] LABS: Magnesium 2.2 mg/dl (1.7-2.4)
[2023-07-07 19:31] LABS: Phosphorus 2.6 mg/dl (2.5-4.9)
[2023-07-07] MEDS ORDERED: hydrALAZINE HCL 20 MG/ML VIAL IV PRN (19:58)
[2023-07-08 01:47] LABS: ANTI-Xa, UFH(UnfractionatedHep > 1.50 IU/ml (0.3-0.7)
[2023-07-08 05:43] LABS: Hemoglobin 13.6 g/dl (14.0-18.0); Mean Corpuscular Hgb Conc 36.8 g/dL (32.0-36.0); Mean Corpuscular Volume 87.1 fL (80.0-100.0); Mean Platelet Volume 8.7 fL (9.4-12.4); Platelet Count 155 K/uL (130-400); RDW Coefficient of Variation 16.1 % (11.5-14.5); RDW Standard Deviation 50.5 fL (36.4-46.3); Red Blood Count 4.25 M/uL (4.70-6.10); White Blood Count 10.73 K/ul (4.8-10.8)
[2023-07-08 05:57] LABS: Albumin Globulin Ratio 1.6 (0.9-2); Albumin Level 3.2 gm/dl (3.4-5.0); BUN Creatinine Ratio 32.5 (10-20); Bilirubin,Total 0.6 mg/dl (0.2-1.0); Calcium 8.3 mg/dl (8.6-10.3); Creatinine Clr Calc Pharmacy 69.2 ml/min; Est GFR (African American) 99.3 ml/min; Est GFR (Non-African American) 85.7 ml/min; Potassium 4.3 mmol/L (3.5-5.1); Total Protein 5.2 gm/dl (6.0-8.3)
[2023-07-08 06:06] LABS: ANTI-Xa, UFH(UnfractionatedHep 0.62 IU/ml (0.3-0.7)
--- NOTE | 2023-07-08 11:57 | Electrocardiogram Report ---
Test Reason : Blood Pressure : / mmHG Vent. Rate : 089 BPM Atrial Rate : 089 BPM P-R Int : 142 ms QRS Dur : 080 ms QT Int : 332 ms P-R-T Axes : 079 014 069 degrees QTc Int : 403 ms Normal sinus rhythm Normal ECG When compared with ECG of 15-MAY-2019 09:11, Questionable change in QRS axis Confirmed by Tony Nino ([id number]) on 07/08/2023 11:56:36 AM Referred By: REFERRED SELF Confirmed By:Eduardo Nino
[2023-07-08 13:31] LABS: ANTI-Xa, UFH(UnfractionatedHep 0.71 IU/ml (0.3-0.7)
--- NOTE | 2023-07-08 14:12 | Hospitalist Progress Note ---
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 No recent travel. He is being managed for the following: Unprovoked Pulmonary embolism: History of DVT November 2022, stopped Eliquis by self decision. No recent travel, presented with few weeks of worsening shortness of breath. Admitting CTA chest with extensive right-sided PE, no evidence of right heart strain. Admitting troponin negative. Patient started on heparin drip, patient would like to go with Coumadin for anticoagulation. Will get him started on Coumadin 07/07, PT/INR daily. started at 2 mg daily, titrate as appropriate. Pulm consulted given extensive right PE. Follow-up with Coumadin clinic closely on discharge. Establish with hematology upon discharge. Follow-up with PCP for age-appropriate cancer screening. Echo has been ordered, pending. Follow. Pulmonary nodules: Noted in CTA chest over the right lower lobe, largest one measuring 8 mm. Patient denies history of smoking. Patient needs follow-up CT chest in 3 to 6 months time. Patient has been made aware. Other chronic medical conditions: Continue with/resume home meds as and when able Hypertensionchronic, continue home metoprolol Hyperlipidemiachronic, continue home niacin. Psoriasischronic, continue home methotrexate Tuesday/. Follow-up with dermatology as prior. Disposition: DC in next few days. CODE STATUS: Full code VTE prophylaxis: Patient on heparin drip, will be started on Coumadin. Admission and Anticipated Discharge Date Admission Date: July 07, 2023 Subjective Patient was seen and examined at bedside. Patient was sitting up in bed, on room air, NAD, resting comfortably. Patient denies any febrile illness or chest pain or cough or palpitation. Patient denies any headache or dizziness. Discussion held regarding selecting anticoagulation method going forward, patient would like to go with warfarin. He is aware that he will need repeated fingerstick for PT/INR initially and then every few weeks after his dose has been stabilized. Physical Exam Physical Exam: GENERAL: Alert and oriented x3. NAD, on RA. HEENT: No pallor, no icterus. Pupils equal, round and reactive to light. Oral mucosa moist. NECK: No JVD, no neck masses. HEART: S1 and S2 heard. Regular rate and rhythm. No murmur, no gallop. RESPIRATORY SYSTEM: Normal AP diameter. No accessory muscle use. No wheezing, no crackles. ABDOMEN: Soft, bowel sounds present, nontender, no distention. CENTRAL NERVOUS SYSTEM: No facial droop. Speech is clear. Obeys simple commands. Moves extremities. EXTREMITIES: No edema, no erythema seen. Results & Data Results & Data Vital Signs (Past 12 Hours) Vital Signs Temp Pulse Pulse Resp BP Pulse Ox O2 Del Method 07/08/23 11:54 36.8 C 77 18 129/76 96 Room Air 07/08/23 09:42 Room Air 07/08/23 07:54 36.8 C 18 L 16 141/78 H 97 Room Air 07/08/23 07:26 64 07/08/23 03:47 36.8 C 79 18 149/76 H 96 Room Air
--- NOTE | 2023-07-08 14:23 | Pulmonary Consultation ---
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 He is hemodynamically stable and has no oxygen requirement currently. Recommendations: 1. 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 Recommend co rrelation with the patient's prior imaging performed at [facility] as well as at [place] to evaluate if the current filling defects are consistent with his prior PE and/or if the interim imaging demonstrated resolution of the filling defects. Regardless, given that this is an unprovoked event, the patient qualifies for lifelong anticoagulation unless there is a significant contraindication. He is on heparin currently. I think this can be discontinued and he can be transitioned to a direct thrombin inhibitor. If he does not wish to pursue that course, Coumadin would be an option. If he goes with Coumadin, he would need 5 days of heparin with 48 hours overlap with an INR greater than or equal to 2. There is no indication for workup for thrombophilia at this point in time and again lifelong anticoagulation until there is a significant contraindication is recommended. 2. Age-appropriate cancer screening recommended. 3. Patient appears hemodynamically stable at this point in time. Once his anticoagulation plan is worked out, he can be dismissed from the hospital. Thanks for the opportunity of participating in the care of this patient. Feel free to contact us with questions or concerns. Pulmonary will sign off. 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 History is obtained from discussion with the patient as well as review electronic medical record. The patient is an 78-year-old male who was apparently hospitalized at [facility] about 6 months ago where he was diagnosed with a PE. We do not have any records from that hospitalization or his imaging studies to review. This was felt to be an unprovoked event and he was placed on Eliquis. He states the medication caused headaches and dizziness and under the direction of his PA in [place], the medication was discontinued after 4 months. He states that there were imaging studies performed through [place] including a CT which demonstrated resolution of the filling defects and he was advised that the blood clots had resolved. He presented to the emergency room yesterday with complaints of several weeks of progressive shortness of breath. He did have a mechanical fall 48 hours prior to admission. He was studied with a repeat CT angiogram which demonstrated extensive filling defects within the right-sided pulmonary artery. He was initiated on heparin. He is admitted to the hospitalist service. The patient has never been hypoxemic requiring supplemental oxygen. He is never demonstrated any hemodynamic instability. He states that his cancer screening is up-to-date. He is had multiple evaluations for colorectal cancer which have been unremarkable. He believes he has had PSA screening. No family history of malignancies or thromboembolic disorders that he is aware of. Allergies Allergy/AdvReac Type Severity Reaction Status Date / Time Luuvjgt-KVS-WjB Reductase Allergy Unknown abnormal Verified 06/08/23 08:05 Inhibitor blood [Pyjfywg-Uol-Yrp Reductase work, Inhibitor] mimicing heart attack Home Medications Medication Instructions Recorded Confirmed Type Cramp Desense 70 mg PO DAILY 05/09/19 07/07/23 History Holy Basil 1 tab PO DAILY 05/09/19 07/07/23 History alpha lipoic acid 300 mg capsule 300 mg PO DAILY 05/09/19 07/07/23 History ascorbic acid (vitamin C) 500 mg 500 mg PO DAILY 05/09/19 07/07/23 History tablet (Vitamin C With Lynnette Hips) aspirin 81 mg tablet,delayed 81 mg PO DAILY 05/09/19 07/07/23 History release (Jeanne Low Dose Aspirin) calcium carbonate 600 mg-vitamin 1 tab PO DAILY 05/09/19 07/07/23 History D3 10 mcg (400 unit) tablet (Calcium 600 + D(3)) cholecalciferol (vitamin D3) 50 2,000 unit PO DAILY 05/09/19 07/07/23 History mcg (2,000 unit) capsule (Vitamin D3) folic acid 800 mcg tablet 0.8 mg PO DAILY 05/09/19 07/07/23 History methotrexate sodium 2.5 mg tablet 25 mg PO WK 05/09/19 07/07/23 History jmqvkfzr-uj-rsjkz 300 mcg-K 60 1 tab PO DAILY 05/09/19 07/07/23 History mcg-lycop 600 mcg-lutein 300 mcg tablet (Centrum Silver Men) niacin 500 mg tablet 1,500 mg PO DAILY 05/09/19 07/07/23 History potassium gluconate 595 mg (99 mg) 595 mg PO DAILY 05/09/19 07/07/23 History tablet salmon oil-omega-3 fatty acids 1 cap PO DAILY 05/09/19 07/07/23 History 1,000 mg-200 mg capsule ([place] Oil-) saw palmetto 500 mg capsule 500 mg PO DAILY 05/09/19 07/07/23 History vit A 300 mcg-C 200 mg-E 27 1 tab PO DAILY 05/09/19 07/07/23 History mg-lutein 2 mg and minerals tablet (Vision Formula (with lutein)) oxycodone 5 mg tablet 5 mg PO Q4H PRN pain #30 tabs 06/15/19 07/07/23 Rx metoprolol succinate 25 mg capsule 25 mg PO DAILY 06/25/19 07/07/23 History sprinkle, ext. release 24 hr amoxicillin 500 mg capsule 500 mg PO BID #56 caps 09/16/20 07/07/23 Rx amoxicillin 500 mg tablet 2,000 mg (4 x 500 mg) PO ONCE #4 10/20/21 07/07/23 Rx tabs Patient History Medical History (Updated 07/08/23 @ 14:20 by Davie Altamirano MD) Hyperlipidemia Osteoarthritis Psoriasis methotrexate weekly (Dermatology) Chronic steroid use High blood pressure High cholesterol Surgical History S/P left knee arthroscopy H/O repair of right rotator cuff arthroscopy H/O repair of left rotator cuff open History of colonoscopy History of cataract surgery bilateral History of tonsillectomy History of reverse total replacement of right shoulder joint H/O vasectomy Family History Father FHx: leukemia Family history of diabetes mellitus Grandmother (Paternal) Family history of diabetes mellitus Brother FHx: prostate cancer Other No family history of adverse response to anesthesia Social History Smoking Status: Never smoker Second Hand Exposure: No; Do You Dip or Chew Tobacco: No; Hx Alcohol Use: Yes Alcohol type: beer Hx Substance Use: No Preferred Language: Albanian Communication Ability: Effective [employer] Hand Required: No Beliefs That Will Affect Care: None marital status: Current Living Situation: Spouse Feels Safe at Home: Yes Safety Concerns: Feels Safe At This Time Assistive Devices: Glasses Review of Systems Review of Systems: All systems reviewed & are unremarkable except as noted in Subjective Physical Exam Constitutional: WD/WN, vitals as above Neck: trachea midline, no thyromegaly Respiratory: normal respiratory effort, lungs clear to auscultation Cardiovascular: RRR, no murmur, no edema Gastrointestinal (Abdomen): normal bowel sounds, soft, nontender, no hepatosplenomegaly Musculoskeletal: Extremities: extremities normal to inspection Skin: no rashes, warm and dry Neurologic: Nonfocal exam Lymphatic: no cervical lymphadenopathy Results & Data Results & Data Vital Signs (Past 12 Hours) Vital Signs Temp Pulse Pulse Resp BP Pulse Ox O2 Del Method 07/08/23 11:54 36.8 C 77 18 129/76 96 Room Air 07/08/23 09:42 Room Air 07/08/23 07:54 36.8 C 18 L 16 141/78 H 97 Room Air 07/08/23 07:26 64 07/08/23 03:47 36.8 C 79 18 149/76 H 96 Room Air Critical Care Results & Data Vital Signs (Past 12 Hours) Vital Signs Temp Pulse Pulse Resp BP Pulse Ox O2 Del Method 07/08/23 11:54 36.8 C 77 18 129/76 96 Room Air 07/08/23 09:42 Room Air 07/08/23 07:54 36.8 C 18 L 16 141/78 H 97 Room Air 07/08/23 07:26 64 07/08/23 03:47 36.8 C 79 18 149/76 H 96 Room Air Lab & Micro Results (Past 24 Hours) RBC 4.25 M/uL (4.70-6.10) L 07/08/23 WBC 10.73 K/ul (4.8-10.8) 07/08/23 Hgb 13.6 g/dl (14.0-18.0) L 07/08/23 Hct 37.0 % (42.0-52.0) L 07/08/23 MCV 87.1 fL (80.0-100.0) 07/08/23 MCH 32.0 pg (25.0-34.0) 07/08/23 MCHC 36.8 g/dL (32.0-36.0) H 07/08/23 RDW Standard Deviation 50.5 fL (36.4-46.3) H 07/08/23 RDW Coefficient of Variation 16.1 % (11.5-14.5) H 07/08/23 Plt Count 155 K/uL (130-400) 07/08/23 MPV 8.7 fL (9.4-12.4) L 07/08/23 Na 138 mmol/L (136-145) 07/08/23 K 4.3 mmol/L (3.5-5.1) 07/08/23 Cl 106 mmol/L (98-107) 07/08/23 CO2 28 mmol/L (21-32) 07/08/23 Anion Gap 4 (3-11) 07/08/23 BUN 25 mg/dl (6-23) H 07/08/23 Creatinine 0.77 mg/dl (0.6-1.4) 07/08/23 Estimated GFR ( Amer) 99.3 ml/min 07/08/23 Estimated GFR (Non-Af Amer) 85.7 ml/min 07/08/23 BUN/Creatinine Ratio 32.5 (10-20) H 07/08/23 Glu 95 mg/dl (70-99(Fasting)) 07/08/23 Ca 8.3 mg/dl (8.6-10.3) L 07/08/23 Phosphorus Level 2.6 mg/dl (2.5-4.9) 07/07/23 Total Bilirubin 0.6 mg/dl (0.2-1.0) 07/08/23 AST 21 U/L (13-39) 07/08/23 ALT 49 U/L (7-52) 07/08/23 Alkaline Phosphatase 29 U/L (34-104) L 07/08/23 TP 5.2 gm/dl (6.0-8.3) L 07/08/23 Albumin 3.2 gm/dl (3.4-5.0) L 07/08/23 Globulin 2.0 gm/dl (2.5-4.0) L 07/08/23 Albumin/Globulin Ratio 1.6 (0.9-2) 07/08/23 Mg 2.2 mg/dl (1.7-2.4) 07/07/23 17:55 Calcium Level 8.3 mg/dl (8.6-10.3) L 07/08/23 05:17 Diagnostic Findings (Past 24 Hours) Chest CTA 07/07/23 00:00 CHEST CTA for PULMONARY ARTERIES CT DOSE: HISTORY: Fall. Dyspnea. TECHNIQUE: Multiaxial CT images of the chest were performed following the intravenous administration of contrast to evaluate the pulmonary arteries. 3D/Maximal intensity projection images were also obtained. Sagittal and coronal reformations were also reviewed. A dose lowering technique was utilized adhering to the principles of ALARA. COMPARISON STUDY: None. FINDINGS: Normal caliber thoracic aorta with no evidence for a dissection. The heart is normal in size. Multiple filling defects seen within the distal right main pulmonary artery and extending into all of the right lobar pulmonary arteries as well as multiple right segmental pulmonary arteries. This is consistent with extensive right-sided pulmonary emboli. No evidence for right- sided heart strain at this time. The thyroid gland enhances normally. Limited views of the upper abdomen demonstrate a normal liver, spleen, and adrenal glands. Normal esophagus. No pleural or pericardial effusions. No mediastinal or hilar lymphadenopathy. No acute fractures within the chest. No pneumothorax. The central airways are patent. Punctate calcification within the left lower lobe. There is an 8 mm nodule within the base of the right lower lobe on image 49. This contains a punctate calcification. Small linear scarlike density within the periphery the right lower lobe. Punctate calcified granuloma within the right lower lobe. A 4 mm subpleural nodule within the right upper lobe on image 195. Punctate calcified granuloma within the right lung apex. A 4 mm nodule within the right upper lobe on image 179. Mild dependent changes seen at the lung bases. Small peripheral groundglass densities within the left upper lobe best seen on image 139. IMPRESSION: 1. Extensive right-sided pulmonary emboli. No evidence for right-sided heart strain. 2. Small peripheral groundglass airspace opacity within the left upper lobe. This is nonspecific but could represent a small focus of inflammatory/infectious change. A developing pulmonary infarct is also considered in the differential diagnosis. 3. A few scattered pulmonary nodules with the largest in the right lower lobe measuring 8 mm. Please refer to the chart below for recommended follow-up. Please refer to below summary of Fleischner criteria recommendations for follow- up of incidental CT nodules (Ousmane Cabrales, Guidelines for management of small pulmonary nodules detected on CT scans: A statement from the Fleischner Society, Radiology 237: [id number].) SOLID NODULES Solitary nodule size: <6 mm * Low risk patients: no follow-up needed * high risk patients: optional CT at 12 months Solitary nodule size: 6-8 mm * Low risk patients: follow-up at 6-12 months, then consider further follow-up at 18-24 months * high risk patients: initial follow-up CT at 6-12 months and then at 18-24 months if no change Solitary nodule size: >8 mm * either low or high risk patients - consider follow-up CT at 3 months, and/or CT-PET, and/or biopsy Multiple nodules size: <6 mm * Low risk patients: no routine follow-up * high risk patients: optional CT at 12 months Multiple nodules size: 6-8 mm * Low risk patients: follow-up at 3-6 months, then consider further follow-up at 18-24 months * high risk patients: follow-up at 3-6 months, then at 18-24 months if no change Multiple nodules size: >8 mm * Low risk patients: follow-up at 3-6 months, then consider further follow-up at 18-24 months * high risk patients: follow-up at 3-6 months, then at 18-24 months if no change Note: newly detected indeterminate nodule in persons 35 years of age or older. * Low risk patients: minimal or absent history of smoking and/or other known risk factors * high risk patients: history of smoking or of other known risk factors (e.g. first degree relative with lung cancer, or exposure to asbestos, radon, uranium) * if a nodule up to 8 mm is partly solid or is ground glass further follow-up is required after 24 months to exclude possible slow growing adenocarcinoma (CARLOS) SUBSOLID NODULES Solitary pure ground-glass nodule * nodule size <6 mm - no CT follow-up required * nodule size >=6 mm - follow-up CT at 6-12 months, then every 2 years until 5 years Solitary part-solid nodule * nodule size <6 mm - no CT follow-up required * nodule size >=6 mm - follow-up CT at 3-6 months. If unchanged, and solid component remains <6 mm, then annual follow-up for 5 years Multiple subsolid nodules * nodule size <6 mm - follow-up CT at 3-6 months, consider further follow-up at 2 and 4 years if stable * nodule size >=6 mm - follow-up CT at 3-6 months, subsequent management based on the most suspicious nodule(s) ACT 112: Negative or not required by law. Electronically signed by: Kennedy Soriano M.D. 07/07/2023 5:[address] 07/07/23 00:[address] WITHOUT CONTRAST CLINICAL HISTORY: Fall. COMPARISON STUDY: No previous studies for comparison. TECHNIQUE: Axial images of the head were obtained without IV contrast. Sagittal and coronal reconstructions were viewed. Automated exposure control was utilized for the study. A dose lowering technique was utilized adhering to the principles of ALARA. FINDINGS: No acute intracranial hemorrhage, midline shift or mass effect is present. Ventricular system is unremarkable. Basal cisterns are patent. There are no extra-axial collections. There are no findings to suggest acute dural sinus thrombosis or acute territorial infarct. No calvarial fractures are identified. IMPRESSION: 1. No acute intracranial findings. 2. No calvarial fractures. ACT 112: Negative or not required by law. Electronically signed by: Stefan Russ M.D. 07/07/2023 4:53 PM I & O Totals 24 Hours 07/07/23 07/08/23 07/09/23 06:59 06:59 06:59 Intake Total 296.333 / 296.333 123.533 / 123.533 Balance 296.333 / 296.333 123.533 / 123.533 Cumulative 07/07/23 16:50 thru 07/08/23 13:34 Intake Total 419.866 Balance 419.866 RT Ventilator Mngmt (Last Documented) Ventilator Ordered Settings Respiratory Rate 18 07/08/23 11:54 Ventilator - PT Measurements Respiratory Rate 18 PG Care Time/CCT Total # of Minutes Spent Total Time Spent with Patient: Total time spent is greater than 50% in coordination of care (as documented) at patient's floor/unit and/or counseling patient: Coding Level of Care Code 39228 INT INP/OBS CARE 3/75MIN Diagnoses Pulmonary embolism I26.99 Pulmonary nodule R91.1
[2023-07-08 15:33] LABS: INR 1.1 (0.9-1.1)
[2023-07-08] MEDS: WARFARIN SOD 2 MG TAB PO SCH (16:45)
[2023-07-08 20:11] LABS: ANTI-Xa, UFH(UnfractionatedHep 0.93 IU/ml (0.3-0.7)
[2023-07-09 04:22] LABS: Hematocrit (blood only) 40.1 % (42.0-52.0); Hemoglobin 14.5 g/dl (14.0-18.0); Mean Corpuscular Hemoglobin 32.2 pg (25.0-34.0); Mean Corpuscular Hgb Conc 36.2 g/dL (32.0-36.0); Mean Corpuscular Volume 88.9 fL (80.0-100.0); Mean Platelet Volume 8.9 fL (9.4-12.4); Platelet Count 151 K/uL (130-400); RDW Coefficient of Variation 16.1 % (11.5-14.5); RDW Standard Deviation 51.4 fL (36.4-46.3); Red Blood Count 4.51 M/uL (4.70-6.10); White Blood Count 11.12 K/ul (4.8-10.8)
[2023-07-09 04:50] LABS: Prothrombin Time 11.4 Seconds (9.0-12.0)
[2023-07-09 04:53] LABS: BUN Creatinine Ratio 32.2 (10-20); Calcium 8.6 mg/dl (8.6-10.3); Creatinine Clr Calc Pharmacy 61.3 ml/min; Est GFR (African American) 94.5 ml/min; Est GFR (Non-African American) 81.5 ml/min; Magnesium 2.2 mg/dl (1.7-2.4); Phosphorus 3.9 mg/dl (2.5-4.9); Potassium 4.4 mmol/L (3.5-5.1)
[2023-07-09 05:41] LABS: ANTI-Xa, UFH(UnfractionatedHep 0.71 IU/ml (0.3-0.7)
[2023-07-09] MEDS: WARFARIN SOD 2 MG TAB PO STA (08:57)
[2023-07-09] MEDS: METOPROLOL SUCC 25MG EXT REL TAB PO SCH (08:58)
[2023-07-09] MEDS: ASPIRIN 81 MG ECTAB PO SCH (08:58)
[2023-07-09] MEDS: NIACIN 500 MG TAB PO SCH (08:58)
[2023-07-09] MEDS ORDERED: NON-FORMULARY MEDICATION (Potassium Gluconate 595 mg (99 mg) Tablet) PO SCH (09:00)
--- NOTE | 2023-07-09 11:39 | Discharge Summary ---
Date of Service July 09, 2023 Admission HPI Per Admitting Provider Mr. Serra is an 78 year old male that presents to the ED today with SOB. He reports that his exertional SOB has been occurring for the past few weeks. 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 He took the Eliquis for a few months and stopped taking it as he described 'dizziness' and 'headaches' after taking it. He did not stop the Eliquis by provider recommendation and did not notify his provider that he stopped it. No recent travel. Additional past medical history includes HTN (takes Lisinopril), HLD (Takes Niacin), and psoriasis (Follows with Dermatology and takes Methotrexate). Head CT negative for ICH, SDH or midline shift. Chest CT reveals Extensive right-sided pulmonary emboli. No evidence for right- sided heart strain. Small peripheral ground-glass airspace opacity within the left upper lobe. This is nonspecific but could represent a small focus of inflammatory/infectious change. A developing pulmonary infarct is also considered in the differential diagnosis. A few scattered pulmonary nodules with the largest in the right lower lobe measuring 8 mm. Patient denies fevers, chills, cough, headache, dizziness, chest pain, palpitations, abdominal pain or tenderness, nausea, vomiting, diarrhea. Denies tobacco or recreational drug use. Does drink one beer daily but no adverser symptoms if he does not have a beer. Pt sitting in his hospital bed in no apparent distress. S1/S2 on auscultation without any additional heart sounds, euvolemic on exam. Confirmed patient has an advanced directive and is a DNR/DNI. Patient will be admitted for treatment of his recurrent pulmonary emboli with IV heparin drip started in ED with bolus. Will obtain ECHO and also involve Pulmonary for consultation give extensive amount of PE and with recurrence that will require bridging therapy. Please see A/P for further details. Admission Exam Per Admitting Provider Neuro: AAOx4, PERRLA, no aphagia, memory changes, CNII-XII grossly intact HEENT: head normocephalic, moist mucus membranes CV: S1/S2, (-) M/G/R, (-) edema, cap refill < 3 seconds Resp: Lungs CTA in all arellano. On RA GI: Abdomen S/NT/ND, Ax4 bowel sounds, (-) CVA tenderness Musculoskeletal: 5/5 B/L UE strength, 5/5 B/L LE strength. No gait disturbance Skin: (-) rashes , (-) erythema. Psych: euthymic mood Principal Diagnosis Unprovoked pulmonary embolism Pulmonary nodules Discharge Exam GENERAL: Alert and oriented x3. NAD, on RA. HEENT: No pallor, no icterus. Pupils equal, round and reactive to light. Oral mucosa moist. NECK: No JVD, no neck masses. HEART: S1 and S2 heard. Regular rate and rhythm. No murmur, no gallop. RESPIRATORY SYSTEM: Normal AP diameter. No accessory muscle use. No wheezing, no crackles. ABDOMEN: Soft, bowel sounds present, nontender, no distention. CENTRAL NERVOUS SYSTEM: No facial droop. Speech is clear. Obeys simple commands. Moves extremities. EXTREMITIES: No edema, no erythema seen. 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 No recent travel. He was managed for the following: Unprovoked Pulmonary embolism: History of DVT November 2022, stopped Eliquis by self decision. No recent travel, presented with few weeks of worsening shortness of breath. Admitting CTA chest with extensive right-sided PE, no evidence of right heart strain. Admitting troponin negative. Echo reviewed. Patient started on heparin drip, patient initially chose to go with warfarin but now wants to go with Xarelto. Xarelto cost is $0 per month per bilingual case manager, patient agreeable to the cost. Patient will be discharged on Xarelto for acute PE. Patient to follow-up with PCP for long-term monitoring. Patient has been advised to establish with hematology upon discharge. Patient to follow-up with PCP for age-appropriate cancer screening. Pulmonology evaluated while in hospital. Establish with hematology upon discharge. Follow-up with PCP for age-appropriate cancer screening. Echo has been ordered, pending. Follow. Pulmonary nodules: Noted in CTA chest over the right lower lobe, largest one measuring 8 mm. Patient denies history of smoking. Patient needs follow-up CT chest in 3 to 6 months time. Patient has been made aware. Other chronic medical conditions: Continue with/resume home meds as and when able Hypertensionchronic, continue home metoprolol Hyperlipidemiachronic, continue home niacin. Psoriasischronic, continue home methotrexate Tuesday/. Follow-up with dermatology as prior. Disposition: DC in next few days. CODE STATUS: Full code VTE prophylaxis: Patient on heparin drip, will be started on Coumadin. Patient is being discharged to home with following instruction at the point of discharge: Follow-up with your primary care physician within a week time and likely you will need labs CBC/CMP/magnesium/phosphorus. You have blood clots in the lung, you chose to go with Xarelto regimen. Take Xarelto 15 mg twice a day for 21 days and then 20 mg daily thereafter. Follow- up with your primary care office for long-term monitoring. Given recurrent blood clots, establish with hematology in 1 to 2 months time, coordinate with your PCP office to set up the test. Follow-up with the PCP office for age-appropriate cancer screening. You had pulmonary nodules noted in the chest imaging while in the hospital, you will need repeat CT scan of the chest in 3 to 6 months time. Coordinate with your PCP office to set up the test. Take your medications as prescribed. Please make sure that you are able to get your medications today by calling your pharmacy before you leave the hospital so that your treatment continuity is not broken. [facility] Attestation I certify that this patient is under my care and that I, or a physicians assistant guest services manager working with me, had a face to-face encounter that meets the [id number] encounter requirements with this patient. The encounter with the patient was in whole, or in part, for the following medical condition, which is the primary reason for home health care (list medical condition): I certify that, based on my findings, the following services are medically necessary home health services: My clinical findings support the need for the above services because: Further, I certify that my clinical findings support that this patient is homebound (i.e. absences from home require considerable and taxing effort and are for medical reasons or [employer] services or infrequently or of short duration when for other reasons) because: Certification for Home Health Services: Based on the above findings, I certify that this patient is confined to the home and needs intermittent correction care, physical therapy and/or speech therapy or continues to need occupational therapy. The patient is under my care, and I have initiated the establishment of the plan of care. This patient will be followed by a physician who will periodically review the plan of care. Total Time Total Time Spent Total Time Spent (In Minutes): 35 Discharge Plan Discharge Items Patient Disposition: Home - Self-Care Reason For Visit: SOB/PE Discharge Diagnosis: Unprovoked pulmonary embolism Pulmonary nodules Activity: Resume your previous activity Non-emergency contact: Primary Care Provider Call non-emergency contact if: you have any medication questions and your symptoms worsen Follow-up/Referrals: Priya Mckeon PA-C [Primary Care Provider] - Diet: Heart Healthy Addtl Attending Provider Instructions: Follow-up with your primary care physician within a week time and likely you will need labs CBC/CMP/magnesium/phosphorus. You have blood clots in the lung, you chose to go with Xarelto regimen. Take Xarelto 15 mg twice a day for 21 days and then 20 mg daily thereafter. Follow- up with your primary care office for long-term monitoring. Given recurrent blood clots, establish with hematology in 1 to 2 months time, coordinate with your PCP office to set up the test. Follow-up with the PCP office for age-appropriate cancer screening. You had pulmonary nodules noted in the chest imaging while in the hospital, you will need repeat CT scan of the chest in 3 to 6 months time. Coordinate with your PCP office to set up the test. Take your medications as prescribed. Please make sure that you are able to get your medications today by calling your pharmacy before you leave the hospital so that your treatment continuity is not broken. Pending Studies at Discharge: No Stand-Alone Forms: My [facility] [employer], Smoking Cessation Medications and DC Order Prescriptions: New Xarelto DVT-PE Treat 30d Start 15 mg (42)- 20 mg (9) tablets,dose pack See Rx Instructions .ROUTE .COMPLEX Qty: 51 0RF Rx Instructions: take one-15 mg tablet twice daily for 21 days, then one-20 mg tablet once daily; must take with meal/food Continued amoxicillin 500 mg tablet 2,000 mg PO ONCE Qty: 4 4RF Rx Instructions: 4 tabs 1 hour prior to procedure metoprolol succinate 25 mg capsule,sprinkle,ER 24hr 25 mg PO DAILY aspirin [Jeanne Low Dose Aspirin] 81 mg Tablet,Delayed Release (Dr/Ec) 81 mg PO DAILY ascorbic acid (vitamin C) [Vitamin C With Lynnette Hips] 500 mg Tablet 500 mg PO DAILY methotrexate sodium 2.5 mg Tablet 25 mg PO WK Rx Instructions: total of 10 tablets niacin 500 mg Tablet 1,500 mg PO DAILY saw palmetto 500 mg Capsule 500 mg PO DAILY folic acid 800 mcg Tablet 0.8 mg PO DAILY Vision Formula (with lutein) 1,000 unit-200 mg-60 unit-2 mg Tablet 1 tab PO DAILY calcium carbonate-vitamin D3 [Calcium 600 + D(3)] 600 mg(1,500mg) -400 unit Tablet 1 tab PO DAILY potassium gluconate 595 mg (99 mg) Tablet 595 mg PO DAILY [place] Oil-1000 1,000-200 mg Capsule 1 cap PO DAILY alpha lipoic acid 300 mg Capsule 300 mg PO DAILY cholecalciferol (vitamin D3) [Vitamin D3] 50 mcg (2,000 unit) Capsule 2,000 unit PO DAILY Centrum Silver Men 300-600-300 mcg Tablet 1 tab PO DAILY Cramp Desense 70 mg PO DAILY Rx Instructions: [employer] Holy Basil 1 tab PO DAILY Rx Instructions: [employer] oxycodone 5 mg Tablet 5 mg PO Q4H PRN (Reason: pain) Qty: 30 0RF Discontinued amoxicillin 500 mg capsule 500 mg PO BID Qty: 56 0RF Discharge Orders: Discharge Order (Routine); Ordered 07/09/23 Ordered By: Jill Bhandari Admission Data Admit Date/Time: 07/07/23 17:51 Attending Provider: Jill Bhandari Admit Provider: Clarice Lockhart Primary Care Provider: Priya Mckeon Other Providers: Clarice Lockhart; Randal Flores; David Oro; Davie Altamirano; Kristi Gutierrez; Addis Newberry; Cheryl Sosa; Christopher Patel; Bahman Gamboa; Anne Zendejas
[2023-07-09] MEDS: RIVAROXABAN 15 MG TAB PO SCH (12:02)
[2023-07-09 12:32] LABS: ANTI-Xa, UFH(UnfractionatedHep 0.56 IU/ml (0.3-0.7)
== END 2023-07-09 13:43 | disposition home or self-care (01) | DRG 176 ==
LOC: ED 16:50 → SUATTDRO 17:51 → 2N 17:51